=== PATIENT | female | born 1955 | race Caucasian/White ===

== ENCOUNTER 2018-10-27 20:16 | Emergency (ER) | payer OTHER, MEDICAID, SELFPAY ==
[2018-10-27 20:22] VITALS: BP 201/116; PULSE 78; RESP 20; O2SAT 100
--- NOTE | 2018-10-27 21:27 | ED_ITS ---
HPI - Eye Problem <Jacey Olson PA-C - Last Filed: 10/27/18 22:47> General Chief complaint: Eye Problems Stated complaint: thinks she has pink eye of left eye Time Seen by Provider: 10/27/18 21:25 Source: patient Mode of arrival: ambulatory Limitations: no limitations History of Present Illness HPI Narrative: This 63-year-old female comes to ED tonight due to concern for pink eye. She states that she developed a red, gritty irritated eye today. She has had pinkeye before and this feels the same, and she states that she has been around a friend for the last couple of days who developed pink eye just before hers started. She states that her vision is normal. She has had some discolored drainage and mattering. She states that she has had a bit of a runny nose lately, but otherwise no illness, no other upper respiratory symptoms , no fever. Of note her blood pressure is elevated today and she admits that she has been off of her lisinopril and hydrochlorothiazide for about 2 months just due to not getting a refill of it. She has not had any chest pain or other acute symptoms since off of this Related Data Previous Rx's Medication Instructions Recorded hydrochlorothiazide 25 mg PO QDAY #30 tab 03/21/17 nitrofurantoin monohyd/m-cryst 100 mg PO BID #14 cap 10/03/17 phenazopyridine 100 mg PO TID #6 tab 10/03/17 lisinopril 10 mg PO QDAY #30 tab 11/27/17 atorvastatin [Lipitor] 20 mg PO HS #30 tab 11/30/17 pneumococcal 23 polyvalent vaccine 0.5 ml IM ONCE #0.5 ml 04/03/18 25 mcg/0.5 mL injection syringe erythromycin 0.5 inch EYE-LEFT .q4WA 7 Days 10/27/18 #3.5 gram hydrochlorothiazide 25 mg PO DAILY #30 tab 10/27/18 lisinopril 10 mg PO DAILY #30 tab 10/27/18 Allergies Allergy/AdvReac Type Severity Reaction Status Date / Time propoxyphene [From DARVON] Allergy Severe REDNESS Unverified 10/27/18 20:26 AND SWELLING IN FACE CORTISONE SHOTS Allergy Severe HIVES Uncoded 10/27/18 20:26 FROM HEAD TO TOES Review of Systems <Jacey Olson PA-C - Last Filed: 10/27/18 22:47> Review of Systems ROS Unobtainable: All systems reviewed & are unremarkable except as noted in HPI and below Exam <Jacey Olson PA-C - Last Filed: 10/27/18 22:47> Narrative Exam Narrative: GENERAL APPEARANCE: Patient sitting comfortably, in no distress. HEENT: PERRL, EOMI, left eye erythematous conjunctiva and scleral injection. She has some watery opaque drainage. Right eye is normal. Vision: OS 20/40, OU 20/25, OD 20/30 LUNGS: Clear to auscultation bilaterally. HEART: Rate and rhythm regular without murmur, normal S1 and S2, no S3 or S4. Initial Vital Signs Initial Vital Signs: Vital Signs Pulse Rate 78 10/27/18 20:22 Respiratory Rate 20 10/27/18 20:22 Blood Pressure 201/116 H 10/27/18 20:22 Pulse Oximetry 100 10/27/18 20:22 <Zan Monson MD - Last Filed: 10/28/18 05:37> Initial Vital Signs Initial Vital Signs: Vital Signs Pulse Rate 78 10/27/18 20:22 Respiratory Rate 20 10/27/18 20:22 Blood Pressure 201/116 H 10/27/18 20:22 Pulse Oximetry 100 10/27/18 20:22 Course <Jacey Olson PA-C - Last Filed: 10/27/18 22:47> Orders Ordered: Discontinued Medications Erythromycin (Erythromycin Ophth Oint) 1 applic EYE-LEFT NOW ONE Stop: 10/27/18 21:34 Last Admin: 10/27/18 22:02 Dose: 1 applic Hydrochlorothiazide (Hydrochlorothiazide) 25 mg PO NOW ONE Stop: 10/27/18 21:34 Last Admin: 10/27/18 22:02 Dose: 25 mg Lisinopril (Zestril) 10 mg PO NOW ONE Stop: 10/27/18 21:34 Last Admin: 10/27/18 22:02 Dose: 10 mg Vital Signs - 8 hr 10/27/18 22:25 Pulse Rate 70 Blood Pressure 175/109 H <Zan Monson MD - Last Filed: 10/28/18 05:37> Orders Ordered: Discontinued Medications Erythromycin (Erythromycin Ophth Oint) 1 applic EYE-LEFT NOW ONE Stop: 10/27/18 21:34 Last Admin: 10/27/18 22:02 Dose: 1 applic Hydrochlorothiazide (Hydrochlorothiazide) 25 mg PO NOW ONE Stop: 10/27/18 21:34 Last Admin: 10/27/18 22:02 Dose: 25 mg Lisinopril (Zestril) 10 mg PO NOW ONE Stop: 10/27/18 21:34 Last Admin: 10/27/18 22:02 Dose: 10 mg Vital Signs - 8 hr 10/27/18 22:25 Pulse Rate 70 Blood Pressure 175/109 H Discharge Plan Departure Patient Disposition: Home Clinical Impression: Conjunctivitis, Hypertension Discharge Date/Time: 10/27/18 22:33 Interventions: ED Discharge Assessment Last Done: 10/27/18 22:25 Instructions: DI for High Blood Pressure, DI for Conjunctivitis Activity Restrictions/Additional Instructions: We have given you some ointment to start tonight for pinkeye. Please apply this every few hours while you are awake for the 1st day or 2, then you can change to every 6 hr. As we talked about, you should return if you have any acutely worsening symptoms such as acute vision change or severe eye pain. You should follow up with your eye doctor if this is not improving in a few days. We have given you a dose of your previous blood pressure medications this evening (I have given you the doses that were last on file in your records since you were not sure about them), and I have sent in some to your pharmacy for you to sisal picker tomorrow with the pink eye medicine. Please remember how important it is for you to take these medicines to prevent strokes and heart attacks, especially since you already have a history of carotid artery disease. Please call your PCP office on Monday and make sure you set up a follow-up visit in the next week or so with you back on your blood pressure medicine to make sure this is improving. You may need lab work checked as well. Prescriptions: New erythromycin 5 mg/gram (0.5 %) ointment 0.5 inch EYE-LEFT .q4WA 7 Days Qty: 3.5 RF: 0 lisinopril 10 mg tablet 10 mg PO DAILY Qty: 30 RF: 0 hydrochlorothiazide 25 mg tablet 25 mg PO DAILY Qty: 30 RF: 0 No Action hydrochlorothiazide 25 MG tablet 25 mg PO QDAY Qty: 30 RF: 6 phenazopyridine 100 MG tablet 100 mg PO TID Qty: 6 RF: 1 nitrofurantoin monohyd/m-cryst 100 MG capsule 100 mg PO BID Qty: 14 RF: 0 lisinopril 10 MG tablet 10 mg PO QDAY Qty: 30 RF: 6 atorvastatin [Lipitor] 20 MG tablet 20 mg PO HS Qty: 30 RF: 6 pneumococcal 23-peggy ps vaccine 25 mcg/0.5 mL syringe 0.5 ml IM ONCE Qty: 0.5 RF: 0 Referrals: Camilla Alcantara PA-C [Primary Care Provider] - <Zan Monson MD - Last Filed: 10/28/18 05:37> Cosign ED Attending Cosignature Attestation: I was present in the ER at the time of this patient's care. I reviewed the medical workup. I was available for verbal or direct assessment if needed. I agree with the assessment and evaluation.
[2018-10-27] MEDS: hydroCHLOROthiazide 25 MG TABLET PO (22:02)
[2018-10-27] MEDS: LISINOPRIL 10 MG TABLET PO (22:02)
[2018-10-27] MEDS: ERYTHROMYCIN OPHTH 1 GM OINT 1 APPLIC EYE-LEFT (22:02)
[2018-10-27 22:25] VITALS: BP 175/109; PULSE 70
== END 2018-10-27 22:33 | disposition home or self-care (01) ==
PROVIDERS: Emergency Provider Internal Medicine; Family Provider Physician Assistant; PCP Physician Assistant
DX: H10.9 Unspecified conjunctivitis (principal); I10 Essential (primary) hypertension
CPT/HCPCS: 99283

== ENCOUNTER → 2019-03-01 09:03 | Outpatient (CLI) | payer OTHER, MEDICAID, SELFPAY ==
[2019-03-01 10:19] LABS: Alanine Aminotransferase 14 IU/L (9-52); Albumin 4.2 g/dL (3.5-5.0); Albumin Globulin Ratio 1.5 (1.0-2.8); Alkaline Phosphatase 84 U/L (38-126); Aspartate Aminotransferase 19 IU/L (14-36); BUN Creatinine Ratio 18.9 (6-22); Bilirubin Total 0.5 mg/dL (0.2-1.3); Blood Urea Nitrogen 17 mg/dL (7-17); Calcium 9.6 mg/dL (8.4-10.2); Carbon Dioxide 29 mmol/L (22-32); Chloride 107 mmol/L (98-107); Cholesterol 159 mg/dL (140-199); Estimated Glomerular Filt Rate > 60.0 mL/min (>60); Globulin 2.8 g/dL (1.7-4.1); Glucose 84 mg/dL (80-110); HDL Cholesterol 58 mg/dL (40-60); HEMOLYSIS < 15 (0-50); LDL Cholesterol Calculated 91 mg/dL (<100); Potassium 3.7 mmol/L (3.4-5.1); Sodium 143 mmol/L (137-145); Triglycerides 49 mg/dL (35-150)
== END ==
PROVIDERS: PCP Physician Assistant; Visit Provider Physician Assistant
DX: E78.5 Hyperlipidemia, unspecified (principal); I10 Essential (primary) hypertension
CPT/HCPCS: 36415; 80053; 80061

== ENCOUNTER → 2019-03-21 08:04 | Outpatient (CLI) | payer OTHER, MEDICAID, SELFPAY ==
--- NOTE | 2019-03-21 08:06 | DI.MG.S_ITS ---
BILATERAL DIGITAL SCREENING MAMMOGRAM 3D/2D WITH CAD: 03/21/2019 CLINICAL: Routine screening. Comparison is made to exam dated: 08/18/2017 [facility]. The tissue of both breasts is predominantly fatty. Current study was also evaluated with a Computer Aided Detection (CAD) system. No significant masses, calcifications, or other findings are seen in either breast. There has been no significant interval change. IMPRESSION: NEGATIVE There is no mammographic evidence of malignancy. A 1 year screening mammogram is recommended. This exam was interpreted at Station ID: [id number]. NOTE: For mammograms, a report in lay terms will be sent to the patient. Approximately 15% of breast malignancies will not be visualized mammographically. In the management of a palpable breast mass, a negative mammogram must not discourage biopsy of a clinically suspicious lesion. Electronically Signed By: Rosa Isela shannon/matilde:03/21/2019 10:10:50 letter sent: Normal Exam ACR BI-RADS Category 1: Negative 3341F
--- NOTE | 2019-03-21 08:06 | DI.US.S_ITS ---
PROCEDURE: US CAROTID DOPPLER BI INDICATIONS: LEFT CAROTID ENDARTERECTOMY 2016/ HYPERTENSION TECHNIQUE: Color and pulse Doppler interrogation was performed of both carotid systems, with image documentation and velocity measurements. COMPARISON: [facility], , CAROTID ARTERY DOPPLER BILAT, 11/02/2015, 10:53. FINDINGS: Stenosis calculations are based on SRU (Society of Radiologists in Ultrasound) criteria. Right side: Brachial blood pressure: 115/80 mm Hg. Common carotid artery peak systolic velocity: 78 cm/sec. Internal carotid artery peak systolic velocity: 80 cm/sec. Internal carotid artery end diastolic velocity: 36 cm/sec. External carotid artery peak systolic velocity: 88 cm/sec. ICA/CCA peak systolic ratio: 1.02. Mcfadden scale imaging description: Mild plaque at the bifurcation Percent internal carotid artery stenosis: Less than 50%. Vertebral artery: Flow direction is antegrade. Left side: Brachial blood pressure: 107/76 mm Hg. Common carotid artery peak systolic velocity: 83 cm/sec. Internal carotid artery peak systolic velocity: 103 cm/sec. Internal carotid artery end diastolic velocity: 35 cm/sec. External carotid artery peak systolic velocity: 130 cm/sec. ICA/CCA peak systolic ratio: 1.24. Mcfadden scale imaging description: There is mild dilation of the proximal ICA at the bifurcation appearing slightly more prominent compared to prior exam. Percent internal carotid artery stenosis: Less than 50%. Vertebral artery: Flow direction is antegrade. IMPRESSION: 1. Less than 50% stenosis of the internal carotid arteries bilaterally, with mild degree of interval progression noted on the left. 2. Mild interval dilation prominence of the proximal internal carotid artery compared to prior exam. As clinically indicated, further evaluation with CTA neck may be obtained. Dictated by: Karine Flores M.D. on 03/21/2019 at 11:41 Approved by: Karine Flores M.D. on 03/21/2019 at 11:47
== END ==
PROVIDERS: PCP Physician Assistant; Visit Provider Physician Assistant
DX: Z12.31 Encounter for screening mammogram for malignant neoplasm of breast (principal); I65.23 Occlusion and stenosis of bilateral carotid arteries; I10 Essential (primary) hypertension; Z98.890 Other specified postprocedural states
CPT/HCPCS: 77063; 77067; 93880

== ENCOUNTER → 2020-05-19 09:22 | Outpatient (CLI) | payer MEDICARE, MEDICAID, SELFPAY ==
[2020-05-19 11:25] LABS: Add Manual Diff / Slide Review NO; Basophils Absolute Auto 0 /uL (0-100); Basophils Percent Auto 0.4 % (0-2); Eosinophils Absolute Auto 200 /uL (0-450); Eosinophils Percent Auto 3.7 % (2-4); Hematocrit 41.4 % (36-46); Hemoglobin 13.9 g/dL (12.0-16.0); Lymphocytes Absolute Auto 2600 /uL (1100-4500); Lymphocytes Percent Auto 38.4 % (25-40); Mean Corpuscular HGB Conc 33.5 % (30-36); Mean Corpuscular Hemoglobin 30.2 PG (26-34); Mean Corpuscular Volume 90.4 fL (80-100); Monocytes Absolute Auto 500 /uL (0-900); Monocytes Percent Auto 7.3 % (3-14); Neutrophils Absolute Auto 3400 /uL (1500-7000); Neutrophils Percent Auto 50.2 % (50-75); Platelet Count 199 X10^3/uL (150-400); Red Blood Cell Count 4.59 X10^6/uL (4.0-5.2); Red Cell Distribution Width 14.6 % (11.6-14.8); White Blood Cell Count 6.7 X10^3/uL (4.5-11.0)
[2020-05-19 12:00] LABS: Alanine Aminotransferase 17 IU/L (<35); Albumin 4.3 g/dL (3.5-5.0); Albumin Globulin Ratio 1.7 (1.0-2.8); Alkaline Phosphatase 74 U/L (38-126); Aspartate Aminotransferase 27 IU/L (14-36); BUN Creatinine Ratio 29.1 (6-22); Bilirubin Total 0.7 mg/dL (0.2-1.3); Blood Urea Nitrogen 25 mg/dL (7-17); Calcium 9.8 mg/dL (8.4-10.2); Carbon Dioxide 27 mmol/L (22-32); Chloride 104 mmol/L (98-107); Cholesterol 172 mg/dL (140-199); Estimated Glomerular Filt Rate > 60.0 mL/min (>60); Globulin 2.6 g/dL (1.7-4.1); Glucose 77 mg/dL (80-110); HDL Cholesterol 61 mg/dL (40-60); HEMOLYSIS < 15 (0-50); LDL Cholesterol Calculated 94 mg/dL (<100); Potassium 4.8 mmol/L (3.4-5.1); Sodium 137 mmol/L (137-145); Total Protein 6.9 g/dL (6.3-8.2); Triglycerides 86 mg/dL (35-150)
[2020-05-19 12:30] LABS: TSH w/ Reflex to FT4 1.49 uIU/mL (0.47-4.68)
== END ==
PROVIDERS: PCP Registered Nurse Diabetes Educator; Referring Provider Registered Nurse Diabetes Educator; Visit Provider Registered Nurse Diabetes Educator
DX: E78.5 Hyperlipidemia, unspecified (principal); I10 Essential (primary) hypertension
CPT/HCPCS: 36415; 80053; 80061; 84443; 85025

== ENCOUNTER → 2020-06-04 13:25 | Outpatient (CLI) | payer MEDICARE, MEDICAID, SELFPAY ==
--- NOTE | 2020-06-04 13:36 | DI.MG.S_ITS ---
Patient Name: RICHARD ROBERTS date: 1955 Sex: F Attending Physician: Rio Indications: Date: 06/04/2020 13:30 At the request of: LYNN QUIROGA Procedure: MM screening mammo BI BILATERAL DIGITAL SCREENING MAMMOGRAM 3D/2D WITH CAD: 06/04/2020 CLINICAL: Routine screening. Comparison is made to exams dated: 03/21/2019 mammogram, 08/18/2017 mammogram, and 09/05/2017 mammogram - [facility]. The tissue of both breasts is predominantly fatty. Current study was also evaluated with a Computer Aided Detection (CAD) system. No significant masses, calcifications, or other findings are seen in either breast. There has been no significant interval change. IMPRESSION: NEGATIVE There is no mammographic evidence of malignancy. A 1 year screening mammogram is recommended. This exam was interpreted at Station ID: [id number]. NOTE: For mammograms, a report in lay terms will be sent to the patient. Approximately 15% of breast malignancies will not be visualized mammographically. In the management of a palpable breast mass, a negative mammogram must not discourage biopsy of a clinically suspicious lesion. Electronically Signed By: Alok [email or web address]/matilde:06/04/2020 14:13:16 letter sent: Normal Exam ACR BI-RADS Category 1: Negative 3341F
== END ==
PROVIDERS: PCP Registered Nurse Diabetes Educator; Referring Provider Registered Nurse Diabetes Educator; Visit Provider Registered Nurse Diabetes Educator
DX: Z12.31 Encounter for screening mammogram for malignant neoplasm of breast (principal)
CPT/HCPCS: 77063; 77067

== ENCOUNTER → 2020-12-16 11:12 | Outpatient (CLI) | payer MEDICARE, SELFPAY ==
[2020-12-16] MEDS: COVID-19 VACC #1, MRNA(MOD) 100 MCG/0.5 ML VIAL IM (11:23)
== END ==
PROVIDERS: PCP Registered Nurse Diabetes Educator; Visit Provider Internal Medicine
DX: Z23 Encounter for immunization (principal)
CPT/HCPCS: 0011A; 91301

== ENCOUNTER → 2021-01-13 11:10 | Outpatient (CLI) | payer MEDICARE, SELFPAY ==
[2021-01-13] MEDS: COVID-19 VACC #2, MRNA(MOD) 100 MCG/0.5 ML VIAL IM (11:18)
== END ==
PROVIDERS: PCP Registered Nurse Diabetes Educator; Visit Provider Internal Medicine
DX: Z23 Encounter for immunization (principal)
CPT/HCPCS: 0012A; 91301

== ENCOUNTER → 2021-07-20 13:34 | Outpatient (CLI) | payer MEDICARE, MEDICAID, SELFPAY ==
--- NOTE | 2021-07-20 | DI.RAD.S_ITS ---
PROCEDURE: XR HIP W PEL IF DONE RT 2V INDICATIONS: Pain in right hip TECHNIQUE: AP pelvis with lateral view(s) of the right hip(s). COMPARISON: [facility], CR, [id number] W PEL IF PERFORMED, 12/10/2015, 12:56. FINDINGS: Bones: Left hip arthroplasty components are intact and stable in position. 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 There are no fractures. There is chronic sclerosis at the pubic symphysis, increased compared to the prior study. Incidental note is made of prominent facet joint arthropathy in the visible lower lumbar spine. Sacroiliac joints are intact. Soft tissues: The visualized bowel gas pattern is normal. No suspicious soft tissue calcifications. IMPRESSION: 1. 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 The severity is not significantly changed since 2016. 2. Increased sclerosis at the pubic symphysis. 3. Left hip arthroplasty is in place. Dictated by: Jazz Martin M.D. on 07/20/2021 at 16:30 Approved by: Jazz Martin M.D. on 07/20/2021 at 16:33
== END ==
PROVIDERS: PCP Student in an Organized Health Care Education/Training Program; Referring Provider Student in an Organized Health Care Education/Training Program; Visit Provider Student in an Organized Health Care Education/Training Program
DX: M25.551 Pain in right hip (principal); M24.7 Protrusio acetabuli; Z96.642 Presence of left artificial hip joint
CPT/HCPCS: 73502

== ENCOUNTER → 2021-08-13 08:41 | Outpatient (CLI) | payer MEDICARE, MEDICAID, SELFPAY ==
[2021-08-13 09:50] LABS: Add Manual Diff / Slide Review NO; Basophils Absolute Auto 100 /uL (0-100); Basophils Percent Auto 0.6 % (0-2); Eosinophils Absolute Auto 200 /uL (0-450); Eosinophils Percent Auto 2.1 % (2-4); Hematocrit 39.5 % (36-46); Hemoglobin 13.1 g/dL (12.0-16.0); Lymphocytes Absolute Auto 2500 /uL (1100-4500); Lymphocytes Percent Auto 31.3 % (25-40); Mean Corpuscular HGB Conc 33.3 % (30-36); Mean Corpuscular Hemoglobin 30.1 PG (26-34); Mean Corpuscular Volume 90.4 fL (80-100); Monocytes Absolute Auto 600 /uL (0-900); Monocytes Percent Auto 6.9 % (3-14); Neutrophils Absolute Auto 4700 /uL (1500-7000); Neutrophils Percent Auto 59.1 % (50-75); Platelet Count 223 X10^3/uL (150-400); Red Blood Cell Count 4.37 X10^6/uL (4.0-5.2); Red Cell Distribution Width 15.1 % (11.6-14.8)
[2021-08-13 10:10] LABS: Alanine Aminotransferase 17 IU/L (<35); Albumin 4.1 g/dL (3.5-5.0); Albumin Globulin Ratio 1.6 (1.0-2.8); Alkaline Phosphatase 72 U/L (38-126); Aspartate Aminotransferase 28 IU/L (14-36); BUN Creatinine Ratio 23.8 (6-22); Bilirubin Total 0.6 mg/dL (0.2-1.3); Blood Urea Nitrogen 20 mg/dL (7-17); Calcium 9.5 mg/dL (8.4-10.2); Carbon Dioxide 25 mmol/L (22-32); Chloride 105 mmol/L (98-107); Cholesterol 227 mg/dL (140-199); Estimated Glomerular Filt Rate > 60.0 mL/min (>60); Globulin 2.6 g/dL (1.7-4.1); Glucose 81 mg/dL (80-110); HDL Cholesterol 61 mg/dL (40-60); HEMOLYSIS < 15 (0-50); LDL Cholesterol Calculated 142 mg/dL (<100); Potassium 4.6 mmol/L (3.4-5.1); Sodium 139 mmol/L (137-145); Total Protein 6.7 g/dL (6.3-8.2); Triglycerides 119 mg/dL (35-150)
== END ==
PROVIDERS: PCP Student in an Organized Health Care Education/Training Program; Referring Provider Student in an Organized Health Care Education/Training Program; Visit Provider Student in an Organized Health Care Education/Training Program
DX: I10 Essential (primary) hypertension (principal); Z00.00 Encounter for general adult medical examination without abnormal findings; E78.5 Hyperlipidemia, unspecified
CPT/HCPCS: 36415; 80053; 80061; 84443; 85025

== ENCOUNTER → 2021-08-20 14:03 | Outpatient (CLI) | payer MEDICARE, MEDICAID, SELFPAY ==
--- NOTE | 2021-08-20 | DI.MG.S_ITS ---
BILATERAL DIGITAL SCREENING MAMMOGRAM 3D/2D WITH CAD: 08/20/2021 CLINICAL: Routine screening. Comparison is made to exams dated: 03/21/2019 mammogram, 08/18/2017 mammogram, and 06/04/2020 mammogram - [facility]. The tissue of both breasts is predominantly fatty. Current study was also evaluated with a Computer Aided Detection (CAD) system. No significant masses, calcifications, or other findings are seen in either breast. There has been no significant interval change. IMPRESSION: NEGATIVE There is no mammographic evidence of malignancy. A 1 year screening mammogram is recommended. This exam was interpreted at Station ID: [id number]. NOTE: For mammograms, a report in lay terms will be sent to the patient. Approximately 15% of breast malignancies will not be visualized mammographically. In the management of a palpable breast mass, a negative mammogram must not discourage biopsy of a clinically suspicious lesion. Electronically Signed By: Alok [email or web address]/matilde:08/20/2021 15:34:36 letter sent: Normal Exam ACR BI-RADS Category 1: Negative [id number]
== END ==
PROVIDERS: PCP Student in an Organized Health Care Education/Training Program; Referring Provider Student in an Organized Health Care Education/Training Program; Visit Provider Student in an Organized Health Care Education/Training Program
DX: Z12.31 Encounter for screening mammogram for malignant neoplasm of breast (principal)
CPT/HCPCS: 77063; 77067

== ENCOUNTER → 2022-07-28 12:45 | Outpatient (CLI) | payer OTHER, MEDICAID, SELFPAY ==
--- NOTE | 2022-07-28 13:31 | DI.RAD.S_ITS ---
PROCEDURE: XR SHOULDER RT MIN 2V INDICATIONS: SHOULDER PAIN TECHNIQUE: 3 views of the shoulder were acquired. COMPARISON: None. FINDINGS: Bones: No fractures or dislocations. Moderate acromioclavicular joint and glenohumeral joint osteoarthritic changes are seen with joint space narrowing, subchondral sclerosis and small marginal osteophyte formations. No suspicious bony lesions. Visualized ribs appear intact. Soft tissues: No suspicious soft tissue calcifications. IMPRESSION: Moderate acromioclavicular joint and glenohumeral joint osteoarthritis. No shoulder fracture or dislocation. No gross soft tissue abnormalities. Dictated by: Reagan Cardoso M.D. on 07/28/2022 at 14:31 Approved by: Reagan Cardoso M.D. on 07/28/2022 at 14:32
== END ==
PROVIDERS: PCP Student in an Organized Health Care Education/Training Program; Referring Provider Physician Assistant; Visit Provider Physician Assistant
DX: M25.511 Pain in right shoulder (principal); M19.011 Primary osteoarthritis, right shoulder; Z13.820 Encounter for screening for osteoporosis; M85.851 Other specified disorders of bone density and structure, right thigh; Z78.0 Asymptomatic menopausal state
CPT/HCPCS: 73030; 77080

== ENCOUNTER → 2022-09-02 08:19 | Outpatient (CLI) | payer OTHER, MEDICAID, SELFPAY ==
--- NOTE | 2022-09-02 | DI.US.S_ITS ---
PROCEDURE: US CAROTID DOPPLER BI INDICATIONS: Dizziness and giddiness TECHNIQUE: Color and pulse Doppler interrogation was performed of both carotid systems, with image documentation and velocity measurements. COMPARISON: [facility], [place], US CAROTID DOPPLER BI, 03/21/2019, 8:32. FINDINGS: Stenosis calculations are based on SRU (Society of Radiologists in Ultrasound) criteria. Right side: Brachial blood pressure: 123/80 mm Hg. Common carotid artery peak systolic velocity: 81 cm/sec. Internal carotid artery peak systolic velocity: 69 cm/sec. Internal carotid artery end diastolic velocity: 30 cm/sec. External carotid artery peak systolic velocity: 78 cm/sec. ICA/CCA peak systolic ratio: 0.9 . Mcfadden scale imaging description: Mild atherosclerotic plaque. Percent internal carotid artery stenosis: Less than 50%. Vertebral artery: Flow direction is antegrade. Left side: Brachial blood pressure: 114/79 mm Hg. Common carotid artery peak systolic velocity: 79 cm/sec. Internal carotid artery peak systolic velocity: 77 cm/sec. Internal carotid artery end diastolic velocity: 14 cm/sec. External carotid artery peak systolic velocity: 120 cm/sec. ICA/CCA peak systolic ratio: 1.2 . Mcfadden scale imaging description: Mild atherosclerotic plaque. Percent internal carotid artery stenosis: Less than 50% Vertebral artery: Flow direction is antegrade. IMPRESSION: Less than 50% stenosis of the internal carotid arteries bilaterally. Approved by: Alok Hagen M.D. on 09/02/2022 at 12:46
== END ==
LOC: US 08:20
PROVIDERS: PCP Physician Assistant; Referring Provider Physician Assistant; Visit Provider Physician Assistant
DX: I65.23 Occlusion and stenosis of bilateral carotid arteries (principal); R42 Dizziness and giddiness
CPT/HCPCS: 93880

== ENCOUNTER → 2023-06-27 08:43 | Outpatient (CLI) | payer OTHER, MEDICAID, SELFPAY ==
--- NOTE | 2023-06-27 | DI.US.S_ITS ---
PROCEDURE: US CAROTID DOPPLER BI INDICATIONS: HISTORY OF CAROTID ENDARTERECTOMY TECHNIQUE: Color and pulse Doppler interrogation was performed of both carotid systems, with image documentation and velocity measurements. COMPARISON: [facility], , CAROTID DOPPLER BI, 09/02/2022, 8:48. FINDINGS: Stenosis calculations are based on SRU (Society of Radiologists in Ultrasound) criteria. The flow velocities and the arterial waveforms are normal within both carotid arterial systems. Mild atherosclerotic plaque is seen on both sides. The estimated degree of internal carotid artery stenosis is less than 50%. Antegrade flow is confirmed within both vertebral arteries. IMPRESSION: No hemodynamically significant stenosis is seen. Similar to prior. Dictated by: Artie Garcia M.D. on 06/27/2023 at 10:43 Approved by: Artie Garcia M.D. on 06/27/2023 at 10:43
== END ==
PROVIDERS: PCP Physician Assistant; Referring Provider Physician Assistant; Visit Provider Physician Assistant
DX: Z09 Encounter for follow-up examination after completed treatment for conditions other than malignant neoplasm (principal); Z98.890 Other specified postprocedural states
CPT/HCPCS: 93880

== ENCOUNTER → 2023-10-20 11:35 | Outpatient (CLI) | payer OTHER, MEDICAID, SELFPAY ==
[2023-10-20 12:56] LABS: Add Manual Diff / Slide Review NO; Basophils Absolute Auto 0 /uL (0-100); Basophils Percent Auto 0.5 % (0-2); Eosinophils Absolute Auto 200 /uL (0-450); Eosinophils Percent Auto 2.4 % (2-4); Hematocrit 40.1 % (36-46); Hemoglobin 13.4 g/dL (12.0-16.0); Lymphocytes Absolute Auto 2200 /uL (1100-4500); Lymphocytes Percent Auto 31.8 % (25-40); Mean Corpuscular HGB Conc 33.5 % (30-36); Mean Corpuscular Hemoglobin 29.1 PG (26-34); Mean Corpuscular Volume 86.9 fL (80-100); Monocytes Absolute Auto 500 /uL (0-900); Monocytes Percent Auto 7.8 % (3-14); Neutrophils Absolute Auto 4000 /uL (1500-7000); Neutrophils Percent Auto 57.5 % (50-75); Platelet Count 247 X10^3/uL (150-400); Red Blood Cell Count 4.61 X10^6/uL (4.0-5.2); Red Cell Distribution Width 14.1 % (11.6-14.8)
[2023-10-20 13:14] LABS: INR 1.1 (0.9-1.3); Prothrombin Time 12.2 SECONDS (9.4-12.5)
[2023-10-20 13:16] LABS: PTT Partial Thromboplastin Tim 33 SECONDS (25.1-36.5)
[2023-10-20 13:39] LABS: BUN Creatinine Ratio 28.3 (6-22); Blood Urea Nitrogen 28 mg/dL (7-17); Calcium 9.6 mg/dL (8.4-10.2); Carbon Dioxide 28 mmol/L (22-32); Chloride 100 mmol/L (98-107); Estimated Glomerular Filt Rate > 60 mL/min (>60); Glucose 92 mg/dL (80-110); HEMOLYSIS < 15 (0-50); Potassium 4.2 mmol/L (3.4-5.1); Sodium 137 mmol/L (137-145)
== END ==
LOC: LAB 11:36
PROVIDERS: PCP Physician Assistant; Referring Provider Orthopaedic Surgery; Visit Provider Orthopaedic Surgery
DX: Z51.81 Encounter for therapeutic drug level monitoring (principal); Z01.812 Encounter for preprocedural laboratory examination; N39.0 Urinary tract infection, site not specified
CPT/HCPCS: 36415; 80048; 85025; 85610; 85730

== ENCOUNTER 2023-11-14 08:22 | Day surgery (SDC) | payer OTHER, MEDICAID, SELFPAY ==
[2023-11-02 12:50] VITALS: BMI 27.6
[2023-11-14] VITALS (17 sets, daily range): BP systolic 119–184; BP diastolic 75–104; PULSE 43–80; RESP 11–25; TEMP 36.1–36.4; O2SAT 92–100; BMI 27.6
--- NOTE | 2023-11-14 06:00 | DI.RAD.S_ITS ---
PROCEDURE: XR HIP W PEL IF DONE RT 2V INDICATIONS: INNER OP TECHNIQUE: 3 spot fluoroscopic intraoperative images of the right hip. COMPARISON: [facility], CR, XR HIP W PEL IF DONE RT 2V, 07/20/2021, 13:36. FINDINGS: Spot fluoroscopic intraoperative images demonstrate postsurgical changes from a right total hip arthroplasty with hardware components in stable positions. Postsurgical changes are seen in the overlying soft tissues. IMPRESSION: Expected intraoperative appearance of a right total hip arthroplasty. Approved by: Alok Hagen M.D. on 11/14/2023 at 15:33
[2023-11-14] MEDS: ACETAMINOPHEN 325 MG TABLET 975 MG PO (09:13)
[2023-11-14] MEDS: CELECOXIB 200 MG CAPSULE PO (09:14)
[2023-11-14] MEDS: LACTATED RINGERS 1,000 ML 42 ML IV ×2 (09:14→13:15)
[2023-11-14] MEDS: VANCOMYCIN 1,000 MG/200 ML PIGGYBACK 200 MG IV (10:30)
--- NOTE | 2023-11-14 11:11 | PM.PREOP ---
Pre-operative Note Interval Note History & Physical reviewed/Exam performed by Physician: Yes Changes to H&P: No
--- NOTE | 2023-11-14 11:11 | PM.OP.1 ---
Operative Date/Time/Diagnoses Date of procedure: 11/14/23 Time of procedure: 11:55 Pre-op diagnosis: Right hip OA Post-op diagnosis: same Procedure & Clinicians Procedure: Right total hip arthroplasty anterior approach Same procedure as scheduled: Yes Indications: The patient has had progressively worsening right hip pain with radiographic changes consistent with arthritis. Non-operative management has failed and the patient has requested total hip replacement. The risks, benefits and alternatives to surgery were discussed with the patient prior to proceeding. Risks discussed included, but were not limited to, failure to relieve pain, leg length discrepancy, dislocation, stiffness, infection, nerve damage, deep venous thrombosis, pulmonary embolism, stroke, coma, heart attack, permanent paralysis and , as well as the potential need for eventual revision of the prosthetic. Surgeon: Xochilt Coreas Human Resources Partner: Harley Barrett Anesthesia Type: Spinal Operative Notes Findings: Severe right hip osteoarthritis, adequate stability, soft bone Closure Type: primary Specimen(s): none sent Prosthetic devices, grafts, tissues, transplants, or devices: Coreas and nephew R3 size 52 cup, neutral poly liner, one 6.5 mm screw, size 1 standard offset polar stem with collar, 36 x -3 cobalt chrome head Estimated Blood Loss (mL): 250 Blood products transfused: none Procedure in detail: The patient was brought to the operating room. Patient was carefully positioned in the supine position. Time-out was performed and antibiotics were given. Anesthesia was induced. She was positioned in the on the table in order to allow hyperextension of the hip. The right lower extremity was prepped and draped in a standard sterile fashion. An anterior right hip incision was made 1 fingerbreadth lateral to the anterior superior iliac spine and extended distally towards the greater trochanter. Dissection was carried out through skin and subcutaneous tissues. Superficial hemostasis was achieved. The fascia over the tensor fascia golden was defined and incised with a knife. Two Allis clamps were used to grasp the fascia. Tensor fascia golden was retracted laterally. A gelpi retractor was placed. Dissection was carried out down along the neck. The circumflex vessels were carefully identified and cauterized with the Aqua Mantis. PA was used during the procedure and was essential for intraoperative retraction and safe implantation of the components. There was good visualization of the femoral neck. A Cobra was placed superior to the neck and the gluteus fibers were carefully stripped from that superior aspect of the capsule. A 2nd retractor was placed along the inferior aspect of the neck. The rectus insertion along the capsule was partially released. A 3rd retractor that was then gently placed over the rim of the acetabulum under the rectus. Capsule was carefully incised and released from the intertrochanteric line circumferentially superior to the mid sagittal line and inferiorly to the mid sagittal line until the lesser trochanter was palpable. A tag stitch was placed both in the superior and inferior limb of the capsular insertion. Along the acetabulum capsule was also released up to the mid sagittal 12:00 position. A portion of the labrum was resected. A saw was used to perform an osteotomy at the level of the intertrochanteric line and the junction of the superior femoral neck leaving approximately 1 finger breath of residual inferior neck above the lesser trochanter. A 2nd cut was made along the femoral neck at the base of the head and a napkin ring of neck was removed. Corkscrew was placed in the femoral head and the head was removed without difficulty. Retractors were then repositioned around the acetabulum. Residual labrum was resected and additional osteophytes were removed. A reamer that was 4 mm below the templated size was placed by hand in the acetabulum and it was reamed to centralize the acetabulum. It was then reamed up to 2 under the templated size and fluoroscopy was brought in to confirm the position of the reaming and depth of reaming. I reamed 1 under the anticipated size. A trial cup was placed and noted that it was appropriately sized and fluoroscopy confirmed position and depth. The component was open and inserted without difficulty fluoroscopic imaging was used to confirm that the cup had been adequately seated and was well positioned. It was further stabilized with a single screw. Neutral poly liner was placed. The cup was tested and noted to be stable. Attention was then directed to the femur. The femur was gently hyperextended additional capsular release was performed as needed in order to allow adequate visualization of the proximal femur with elevation of the femur. Patient was placed in a hyperextended slightly adducted position with maximum external rotation. Box osteotome was used to check for any residual neck as well as sclerotic bone along the trochanter. [place] pepper was placed in the femur. Additional broaching was performed. Canal finder was used to determine the alignment of the canal and position. Size 1 broach was placed. The canal was then appropriately broached up to the templated size as long as there was adequate stability of the broach and serial advancement of the broach without excessive impingement. Specific attention was directed at avoiding varus attempting to direct the distal aspect of the broach more anteriorly and avoiding excessive anteversion. Trial reduction showed acceptable range of motion, good stability, no posterior impingement, muslim of leg length and appropriate lateral shuck. I also hyperflexed the hip and checked that there was no impingement anteriorly and there was good stability with flexion, adduction and internal rotation. Marcaine and Exparel were injected.. The stem was placed without difficulty. Repeat trial reduction and x-ray showed acceptable overall position, length, and no evidence of the femoral fracture. Final head was placed. Wound was meticulously irrigated with normal saline. The hip was reduced and additional Exparel and Marcaine were injected. The capsule was closed with interrupted nonabsorbable sutures. The fascia of the tensor was closed with interrupted and running Vicryl. No drain was placed. Any tensor fascia golden muscle that appeared to be contused or injured which was a minimal amount was carefully resected. Capsule around the tensor was injected with Exparel and Marcaine. The skin was closed with barbed stitches for the subcutaneous tissue and skin. We also used surgical glue. The wound was dressed sterilely. Brief Betadine soak was also used and was meticulously irrigated with normal saline. Patient was transferred to recovery room in satisfactory condition. Complications: none Post-operative Condition: stable Disposition: Acute Care Plan for aftercare: The patient will be maintained on a standard total hip replacement protocol with weight bearing as tolerated and anterior hip precautions. The patient will receive Aspirin and sequential compression devices for DVT prophylaxis. The patient will be discharged home when safe for the home environment.
[2023-11-14] MEDS: CEFAZOLIN 2 GM/100 ML PREMIX 100 ML IV ×2 (11:45→20:53)
[2023-11-14] MEDS: TRANEXAMIC ACID 1,000 MG VIAL 1000 MG INJ (12:00)
--- NOTE | 2023-11-14 12:24 | SUR.OPER ---
Patient supine on padded [place]leman table, one arm on padded arm board at <90, other arm padded and secured with tape across patient's chest, both legs secured in padded traction boots and positioned per surgeon, padded post at patient's groin, pressure points checked and padded.
[2023-11-14] MEDS: BUPIVACAINE LIPOSOME 266 MG/20 ML VIAL INJ (12:37)
[2023-11-14] MEDS: BUPIVACAINE 0.25% (PF) 30 ML, EPINEPHrine 0.15 MG INJ (12:39)
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
[2023-11-14] MEDS: HYDROMORPHONE 1 MG INJ IV ×4 (14:44→15:02)
[2023-11-14] MEDS: ONDANSETRON 4 MG/2 ML INJ IV (14:47)
[2023-11-14] MEDS: hydrOXYzine 50 MG/ML INJ 25 MG IM (15:07)
[2023-11-14] MEDS: OXYCODONE/ACETAMINOPHEN 5/325 TABLET 1 TAB PO (15:15)
--- NOTE | 2023-11-14 15:46 | SUR.PHASEI ---
Called in to OR # and spoke to Dr Phillips. BP 184/99 with trends discussed. Pt ok to transfer to floor said . Can restart home meds.
--- NOTE | 2023-11-14 15:47 | SUR.PHASEI ---
1500 Dr Augustin notified of pain pain and anxiety. See order for Vistaril IM.
--- NOTE | 2023-11-14 16:11 | SUR.PHASEI ---
Pt transferred to room 211 in bed by this RN with 1 belongings bag. Family at bedside. SBAR report to Khadra BO. O2 sat on RA on arrival 97%.
[2023-11-14] MEDS: LACTATED RINGERS 1,000 ML 100 ML IV (16:31)
[2023-11-14] MEDS: IBUPROFEN 600 MG TABLET PO ×2 (16:32→22:29)
[2023-11-14] MEDS: lisinopriL 10 MG TABLET PO (16:32)
[2023-11-14] MEDS: hydroCHLOROthiazide 25 MG TABLET 12.5 MG PO (16:32)
[2023-11-14] MEDS: ACETAMINOPHEN 325 MG TABLET 650 MG PO ×2 (16:32→22:30)
--- NOTE | 2023-11-14 17:15 | PC.NURSE ---
1600-Pt to room 211 via bed from PACU. Pt is awake, alert, and oriented x 3. Family members at the bedside. Pt denies pain, nausea, or shortness of breath. ICE pack to right hip. Pt able to wiggle toes and lift left leg-minimal movement on right but has sensation. Describes her right leg as heavy feeling. IVF infusing as ordered. SCD's on and running. Pt oriented to room, call light, bed controls, and tv controls. Bed alarm on for safety and Pt agrees to call for assistance as needed and to not get up without assistance.
--- NOTE | 2023-11-14 17:35 | PT-IP ANOTE ---
PT checked on pt, but pt reports leg is still numb and pt unable to DF LE and does not have full control yet. Check on pt in AM.
[2023-11-14] MEDS: ATORVASTATIN 20 MG TABLET 40 MG PO (20:53)
[2023-11-14] MEDS: DOCUSATE 100 MG CAPSULE PO (20:53)
[2023-11-14] MEDS: ASPIRIN EC 81 MG TABLET PO (20:53)
[2023-11-14] MEDS: OXYCODONE IR 5 MG TABLET PO (20:53)
[2023-11-15 01:19] VITALS: BP 91/64; PULSE 70; RESP 18; TEMP 36.6; O2SAT 92
[2023-11-15] MEDS: OXYCODONE IR 5 MG TABLET PO ×3 (01:56→15:50)
[2023-11-15 05:18] LABS: Hematocrit 34.6 % (36-46); Hemoglobin 11.6 g/dL (12.0-16.0)
[2023-11-15] MEDS: CEFAZOLIN 2 GM/100 ML PREMIX 100 ML IV (05:51)
[2023-11-15] MEDS: ACETAMINOPHEN 325 MG TABLET 650 MG PO ×4 (05:51→22:05)
[2023-11-15] MEDS: IBUPROFEN 600 MG TABLET PO ×4 (05:51→22:06)
[2023-11-15] MEDS: LACTATED RINGERS 1,000 ML 100 ML IV (05:52)
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
[2023-11-15 08:00] VITALS: BP 93/54; PULSE 69; RESP 16; TEMP 36.3; O2SAT 90
--- NOTE | 2023-11-15 09:14 | OT.IP.TRT ---
Current Diagnoses Unilateral primary osteoarthritis, right hip (11/14/23) Surgery Performed Operation Date: 11/14/23 10:45 Actual Procedures p Total Hip Arthroplasty/Anterior Approach(Right) - Xochilt Coreas MD Occupational Therapy Treatment Note M2 OT-IP Current Condition Start: 11/15/23 09:49 Freq: Status: Active Protocol: Document 11/15/23 09:49 [facility] (Rec: 11/15/23 10:04 [facility] [id number]) Occupational Therapy Current Condition Current Condition Evaluation Date 11/15/23 Treatment Diagnosis S/P R NOAH anterior Diagnosis Onset Date 11/14/23 Post Operative Precautions Anterior Hip Precautions No Hip Extension,No Hip External Rotation M3 OT- IP Subjective and Pain Start: 11/15/23 09:49 Freq: Status: Active Protocol: Document 11/15/23 09:49 [facility] (Rec: 11/15/23 10:04 [facility] [id number]) OT- Subjective Occupational Therapy Visit Type Type Initial Evaluation Visit Start Time 08:30 Visit Stop Time 09:14 Occupational Therapy Visit Comments Patient Comments Pt agreed to get up. Patient/Caregiver Goals To go home. OT Pain Assessment Pain When Pain Assessed At Rest Pain Present Pain Present Pain Reported Location Right Hip Intensity 7 Scale Used Numeric (0 - 10) M4 OT- IP ADL's Start: 11/15/23 09:49 Freq: Status: Active Protocol: Document 11/15/23 09:49 [facility] (Rec: 11/15/23 10:04 [facility] [id number]) OT UOW-Zbjl-Tvraccy General Evaluation Self-Feeding Ability Independent OT ADL-Grooming Comments OT Grooming Comments Not performed. OT ADL-Oral Care Comments Oral Care Comments Not performed. OT ADL-Dressing General Eval Lower Body Dressing Ability Minimal Assistance Areas Needing Assistance Socks Comments OT Dressing Comments Able to practice with reprographics associate to be able to leanne clothing over her feet, CGA for balance when up on her feet. Educated to leanne RLE first and take out last. OT ADL-Toileting Comments OT Toileting Comments Pt states did earlier. Suggested pt wear pad/brief at night and have her assist. OT ADL-Bathing Comments OT Bathing Comments not performed M5 OT- IP IADL's Start: 11/15/23 09:49 Freq: Status: Active Protocol: Document 11/15/23 09:49 [facility] (Rec: 11/15/23 10:04 [facility] [id number]) OT-Instrumental Activities of Daily Living Deficits IADL Deficits Identified Deficits Home Safety Awareness Awareness of Need for Assistance at Home Good Awareness Ability to Problem Solve Emergency Able to Problem Solve Situations Medication Management Medication Management No Deficits Identified Money Management Money Management No Deficits Identified Meal Preparation Meal Preparation Caregiver Provides Assist Ortho Assistant Ortho Assistant Caregiver Provides Assist M6 OT- IP Functional Cognition Start: 11/15/23 09:49 Freq: Status: Active Protocol: Document 11/15/23 09:49 [facility] (Rec: 11/15/23 10:04 [facility] [id number]) Cognitive Factors Limiting Selfcare Function Cognitive Ability Level of Alertness Alert Patient Orientation Name,Age,Birthday,Month,Date, Year,Day of Week,Place, Situation Attention Span Ability Capable of Focused Attention, Capable of Sustained Attention Ability to Follow Commands Able to Follow One Step Commands Cognitive Comments Cognitive Assessment Comments Pt able to follow commands for ADl and mobility needs with incorporation of her hip precautions. OT- Vision and Hearing OT- Hearing Assessment OT- Hearing Assessment WFL OT- Vision Assessment Visual Acuity Glasses For Reading Visual Attentiveness WFL Occular Pursuits WFL M7 OT- IP Mobility and Balance Start: 11/15/23 09:49 Freq: Status: Active Protocol: Document 11/15/23 09:49 [facility] (Rec: 11/15/23 10:04 [facility] [id number]) OT- Bed Mobility Assessment Supine to Sit Supine to Sit Assist Standby Assistance Sit to Supine Sit to Supine Assist Minimal Assistance OT-Transfer Assessment Sit to and From Stand Sit to and from Stand Contact Guard Assistance Comments Mobility Comments BP supine 63/38 and 74/39 and not symptomatic. Pt wanting to get her brief and pants on. Sitting BP 82/52 and 92/52. After getting her clothing on while standing started to fee symptomatic of being dizzy and lightheaded BP 74/46 and then had pt lie down again and nursing notified BP in supine 72/42. Pt O2 initially 88% and needing cues to deep breathing and then increased to 94% on RA. Pt needing assist to help get her RLE back into bed. OT- Gait Assessment Comments Gait Ability Comments Pt able to stand due to low BP and symptomatic after standing. OT- Balance Assessment Sitting Balance and Reactions Static Sitting Balance Ability Good Dynamic Sitting Balance Ability Good Standing Balance and Reactions Static Standing Balance Ability Fair M8 OT- IP Objective Assessments Start: 11/15/23 09:49 Freq: Status: Active Protocol: Document 11/15/23 09:49 [facility] (Rec: 11/15/23 10:04 [facility] [id number]) OT Gross Range of Motion Upper Extremity Range of Motion Assessment Within Functional Limits OT Strength Upper Extremity Strength Assessment Right Impaired Comments Strength Comments Pt has arthritis in RUE. M9 OT- IP Assessment and Plan Start: 11/15/23 09:49 Freq: Status: Active Protocol: Document 11/15/23 09:49 [facility] (Rec: 11/15/23 10:04 [facility] [id number]) OT Summary Assessment and Plan Potential Rehabilitation Potential Good Analytic Complexity at Evaluation Low Summary OT Impairments Pain,Balance,Functional Mobility,Dressing,Toileting, Bathing,Toilet Transfers, Shower Transfers,Activity Tolerance Progress Towards Goals Slow Progress due to Pain,Slow Progress due to Medical Issues Assessment Summary Pt low complexity and main barriers are pain, having low BP and very hypotensive especially when standing. Pt has supportive friend to be staying with her when able to go home. Pt to go home with assist when medically stable. Goals Grooming Goal Independent Dressing Goal Independent Toileting Goal Independent Bathing Goal Standby Assistance Toilet Transfer Goal Independent Shower Transfer Goal Standby Assistance Days to Meet Goals 5 Frequency of Treatment Frequency Of Treatment Once a Day Treatment Plan OT Treatment Plan ADL Training,Functional Mobility,Patient/Family Education,Discharge Planning Discharge Recommendations OT Discharge Recommendations Home with Assistance, Outpatient PT Home Equipment Needs Pt would benefit from a sock aid. Transportation Needs at Discharge Private Vehicle
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
[2023-11-15] MEDS: ASPIRIN EC 81 MG TABLET PO ×2 (09:39→22:07)
[2023-11-15] MEDS: LACTATED RINGERS 1,000 ML 1000 ML IV (09:39)
[2023-11-15] MEDS: DOCUSATE 100 MG CAPSULE PO ×2 (09:39→22:07)
--- NOTE | 2023-11-15 10:23 | CM.DANOTE ---
Initial DCP Assessment Visit Reviewed EMR and team rounds for pt's medical status and anticipated d/c needs. Met with pt at bedside, she was found to be laying flat in bed, appearing tired, very limited interaction. Introduced self and role, pt states that her friend will be picking her up once she's medically stable for d/c. Payor: Patricia Khan Attending: Dr. Xochilt Coreas Pt is a 68 year-old F placed in OPIB following her total R-hip arthroplastry surgery. She lives independently with her in their home in [place], and shares that she has friends that plan to assist her post-d/c with immediate recovery needs. Pt was found to be orthostatic this am, may not d/c today unless her blood pressure improves. DCP will continue to monitor and assist with any further evolving home d/c needs. Discharge Planning/Care Management CM Discharge Assessment Start: 11/15/23 10:18 Freq: Status: Active Protocol: Document 11/15/23 10:19 DPL (Rec: 11/15/23 10:23 DPL [id number]) Discharge Planning Assessment Assigned Membership Secretary KINGSTON Garcia Advance Directives? No History Provided By Patient,Medical Record Has Patient been admitted in last 30 No days? Prior Living Arrangements House Household Members spouse,family Independent with ADL's Yes Is patient alert and oriented? Yes Caregiver for Another Yes: Spouse has melanoma Community Services used prior to Physical Therapy admission: DME Already Rented / Owned Bath Bench,Elevated Toilet Seat,FWW / Walker Patient/Family Preference OP PT Therapy Barriers to Discharge No Discharge Plan Home Community Services Physical Therapy Transportation Arrangement Friend Referrals Initiated None needed Whiteboard Updated in Patient Room with Yes name and ext. # of Membership Secretary Review Status In Process Please Provide Date Initial DC 11/15/22 Assessment Was Performed Pre-Anesthesia Assessment Start: 11/02/23 12:50 Freq: Status: Active Protocol: Document 11/02/23 12:50 CAB (Rec: 11/02/23 13:36 CAB [id number]) Pre-Anesthesia Assessment Patient Information Reviewed Via Phone Assessment Assessment Completed With Patient Diagnostic Results BMP/CMP,CBC Comment Labs @ [facility] 10/20/23 Primary Care Provider Nohemi Stephens Seen Specialist in Last 12 Months Yes Specialist Seen Material Mixer,Orthopedist Primary Language Malay Pilot Supervisor Required No Height 157.48 cm Weight 68.492 kg Body Mass Index (BMI) 27.6 Hearing Ability Normal Visual Assist None Dentition Type Full- Upper & Lower Barriers to Learning None Hx Anesthesia Reactions No Hx Family Anesthesia Reaction No Hx Malignant Hyperthermia No Hx Blood Transfusions Yes: hemorrhage in '72 s/p delivery Anesthesia Review Requested Yes: Surgeon requested re: Cardiac Criminal Justice Faculty No alcohol intake current alcohol intake frequency holidays/special occasions only Smoking Status Former smoker Tobacco type e-cigarettes how long ago did patient quit smoking Quit 3 1/2 months ago, still vaping Substance Use Type does not use Pain Present Pain Reported Musculoskeletal Symptoms Difficulty Walking,Joint Pain History of Falling (Recent or History of No ) Patient is completely paralyzed or No completely immobile Mental Status Oriented to own ability Is patient on oxygen? No Does patient have BURGESS/SOB No Hx Sleep Apnea No Currently Taking a Beta Devyn No Can You Climb a Flight of Stairs Without Yes SOB Hx Chest Pain No Hx SOB No Hx Syncope or Dizziness No Anti-Coagulant Therapy Yes: 81mg ASA-advised to continue per Cardiology Has a Material Mixer Yes: Pre-op visit 07/14/[address] Burrows Cardiac Testing No Hx Pacemaker/ICD No Pacemaker Rep Required? No Cardiac Clearance Received Yes Comment Cardiac records scanned and in surgery folder for dos review Diet Type At Home Regular Dysphagia No Gastrointestinal Symptoms None Bladder Pattern Incontinent,Incontinent, Stress Urinary Catheter Present No Hx Urinary Self Catheterization No Diabetes No Patient No Lactating No Hx Drug Resistant Organism No Presence of External or Internal Medical Yes: Left hip Devices Received a COVID vaccine? Yes Received all doses? Yes Marital Status Lives With spouse,family Current Living Arrangements House Number of Floors (Floors) One Floor Support System Family,Friend(s),Spouse Comment has melanoma, minimal assist, friend and family will help at DC Does the Patient Have Assistance After Yes Surgery Patient Discharge Plan Description Return Home Comment Pt advised same day surgery per surgeon Feels Safe in Current Environment Yes Been Physically Hurt or Threatened By a No Person in Current Environment Do you have thoughts of harming yourself None or others? Are you currently considering suicide? No Do you have a plan to hurt yourself or No Plan others? Do You Have Any Spiritual Beliefs That No May Affect Your HC Choices? Do You Have Any Cultural Practices That No May Affect Your HC Choices? Comment Christianity Who Can We Speak to About Patient's Care Family, friends Identifying Code for Release of Patient Declines to issue Information Health Care Proxy/Next of Kin Guzman () Health Care Proxy Emergency Contact Name Arabella John (good friend) Emergency Contact Advance Directives? No Power of Perfume Maker No PAC Instructions Do not shave/clip surgical site,Durable medical equipment ,Medications to take/avoid, Nasal antibiotic,No ETOH/ petroleum product on skin DOS, NPO,Post-op transportation,Pre -surgical wash,Sensory aids, Sturdy shoes/comfortable clothes,Do not bring valuables and remove jewelry
[2023-11-15 12:00] VITALS: BP 74/47; PULSE 71; RESP 16; TEMP 36.3; O2SAT 92
--- NOTE | 2023-11-15 14:45 | PT.IPTN ---
Current Diagnoses Unilateral primary osteoarthritis, right hip (11/14/23) Surgery Performed Operation Date: 11/14/23 10:45 Actual Procedures p Total Hip Arthroplasty/Anterior Approach(Right) - Xochilt Coreas MD Physical Therapy Treatment Note M2 PT-IP Current Condition Start: 11/14/23 17:07 Freq: NEEDED Status: Active Protocol: Document 11/15/23 09:30 AB (Rec: 11/15/23 13:25 AB [id number]) Physical Therapy Current Condition Current Condition Evaluation Date 11/15/23 Treatment Diagnosis s/p R NOAH anterior approach; difficulty in walkiing Onset Date 11/14/23 M3 PT-IP Subjective Start: 11/14/23 17:07 Freq: NEEDED Status: Active Protocol: Document 11/15/23 14:45 AB (Rec: 11/15/23 17:18 AB [id number]) Subjective Physical Therapy Visit Type Type Treatment Note Visit Start Time 15:45 Visit Stop Time 16:30 Number of LINE SERVICE TECHNICIAN Visits 0 Physical Therapy Visit Comments Patient Comments agreeable to do PT Therapy Pain Assessment Pain When Pain Assessed At Rest Pain Present Pain Present Pain Reported Location Right Shoulder Intensity 6 Scale Used Numeric (0 - 10) Pain Management Techniques Distraction,Modification of Treatment,Re-positioning M4 PT-IP Mobility and Gait Start: 11/14/23 17:07 Freq: NEEDED Status: Active Protocol: Document 11/15/23 14:45 AB (Rec: 11/15/23 17:18 AB [id number]) PT-Bed Mobility Assessment Supine to Sit Supine to Sit Standby Assistance Sit to Supine Sit to Supine Standby Assistance PT-Transfer Assessment Sit to and From Stand Sit to and from Stand Standby Assistance,1 Person Assistance,2 Person Assistance Equipment Transfer Assistive Device Gait Belt,Front Wheeled Walker Orthotic/Prosthetic Devices or Brace: No Transfers Transfer Destination Toilet Transfer Technique ambulated Transfer Ability Level of Assist Standby Assistance,Use of Upper Extremities Comments Mobility Comments pt supine in bed and agreed to do PT. BP monitored. BP in supine: 82/44. pt completed supine to sit SBA. able to sit on EOB SBA. no c/o dizziness/ ligth headedness. BP in sittin/44. pt sat for a few more minutes and BP checked again: 85/50. pt requested to use the toilet. completed sit to stand SBA and ambulated to the toilet using FWW SBA. assisted with brief and pants management. completed sit to stand from the toilet SBA using grab bar and pt ambulated towards the sink using FWW sBA. pt was able to maintain standing using fWW/ counter for support while completing handwashing. pt ambulated to EOB using FWW SBA. BP checked: 71/45. pt wants to sit up on the chair. sit to stand from EOB SBA and completed step transfer using FWW to chair SBA. positioned pt on the chair. call light and table placed within reach. BP checked again seated: 80/44. pt asked if the pain meds is making her BP low. explained to pt that there are a lot of factors and meds may be one of them. informed pt that PT will let the nurse know so that she can explain and call the doctor for her concerns and options for pain management. informed nurse regarding continued low BP but without c /o symptoms and concerns about pain meds and that the pt want to talk to her. Gait Assessment Gait Gait Assistance Required: Standby Assistance Distance (Feet) 20 Able to Maintain Weight Bearing Status Yes During Gait Assistive Devices Assistive Device Gait Belt,Front Wheeled Walker Orthotic/Prosthetic Devices or Brace: No Gait Deviations General Gait Pattern Decreased Feet Clearance Factors Limiting Gait Function Factors Limiting Gait Function Decreased Activity Tolerance, Decreased Strength,Difficulty Following Directions,Limited Range of Motion,Pain,Poor Balance,Poor Safety Awareness M5 PT-IP Objective Assessments Start: 11/14/23 17:07 Freq: NEEDED Status: Active Protocol: Document 11/15/23 09:30 AB (Rec: 11/15/23 13:25 AB [id number]) Orientation Orientation/Cognition Level of Alertness Alert Orientation Name,Place,Situation Language Function Ability No Deficits Noted Safety Awareness Decreased Safety Awareness Memory Description No Deficits Noted Gross Range of Motion Lower Extremity ROM Assessment Within Functional Limits Strength Lower Extremity Strength Assessment Right Impaired Hip 3-/5 Knee 3+/5 Coordination Assessment Gross Coordination Gross Coordination WNL Muscle Tone Muscle Tone WNL Yes M6 PT-IP Treatment Start: 11/14/23 17:07 Freq: NEEDED Status: Active Protocol: Document 11/15/23 14:45 AB (Rec: 11/15/23 17:18 AB [id number]) Physical Therapy Treatment Education Education Provided Precautions,Safety M7 PT-IP Assessment and Plan Start: 11/14/23 17:07 Freq: NEEDED Status: Active Protocol: Document 11/15/23 14:45 AB (Rec: 11/15/23 17:18 AB [id number]) PT Summary Assessment and Plan Potential Rehabilitation Potential Fair Summary Impairments Pain,ROM,Strength,Balance,Bed Mobility,Transfers,Gait, Activity Tolerance Progress Towards Goals Slow Progress due to Medical Issues,Slow Progress due to Activity Tolerance Assessment Summary pt continues to have low BP : 82/44 in supine and lowest reading after walkin/45 but without symptoms. pt only requiring SBA with mobility using FWW and plans to go home with her friend to assist her . pt may go home when medically stable. Goals Bed Mobility Goal Independent Transfer Goal Independent,Front Wheeled Walker Gait Goal Independent,Front Wheel Walker Gait Distance 300 Days to Meet Goals 5 Frequency of Treatment Frequency Of Treatment Twice a Day Treatment Plan Physical Therapy Treatment Plan Bed Mobility Training,Transfer Training,Gait Training, Therapeutic Exercise,Balance Retraining,Post Op Education, Discharge Planning,Hot or Cold Pack,Neuromuscular Re-ed, Coordination Retraining,Manual Therapy Precautions Anterior Hip Precautions No Hip Extension,No Hip External Rotation Weight Bearing Status Weight Bearing Status Weight Bear as Tolerated Allowed Weight Bearing Amount (enter % RLE WBAT or #) (%) Recommendations To Nursing Amount of Assist Needed 1 Person Assist Discharge Recommendations PT Discharge Recommendations Home with Assistance, Outpatient PT Transportation Needs at Discharge Private Vehicle
[2023-11-15 16:00] VITALS: BP 138/101; PULSE 68; RESP 18; TEMP 36.5; O2SAT 90
--- NOTE | 2023-11-15 16:17 | PC.NURSE ---
Patient is A&Ox4, on RA. She denies dizziness while lying down although noted BP this a.m. 90'/60's. RN held antihypertensive scheduled medications this a.m. and noted that BP continued to be low and drop while sitting and standing to 70's /40's. Patient had reported feeling slightly dizzy. MD notified and per orders patient is given 1 liter LR Bolus. Patient is able to stand and use BSC and sit in the chair. She denies dizziness. She is able to participate with PT but limited as BP continues to remain low. PA at bedside evaluating patient and explains that discharge today will be held until patient BP 's improve. She is given prn 5mg oxycodone for pain 03/11 this afternoon per request but remains concerned that the medication may be causing her BP to drop. Continuous monitoring.
[2023-11-15 20:21] VITALS: BP 77/44; PULSE 76; RESP 15; TEMP 36.7; O2SAT 94
[2023-11-15] MEDS: SODIUM CHLORIDE 0.9% 1,000 ML 1000 ML IV (21:58)
[2023-11-15] MEDS: ATORVASTATIN 20 MG TABLET 40 MG PO (22:07)
[2023-11-15 22:56] VITALS: BP 93/43; PULSE 68; RESP 17; TEMP 36.8; O2SAT 94
[2023-11-16 03:30] VITALS: BP 70/37; PULSE 73
[2023-11-16 03:35] VITALS: BP 68/42; PULSE 64
[2023-11-16 03:45] VITALS: BP 88/36; PULSE 49; RESP 68
[2023-11-16 03:50] VITALS: BP 88/48
[2023-11-16] MEDS: ACETAMINOPHEN 325 MG TABLET 650 MG PO ×3 (05:05→15:24)
[2023-11-16] MEDS: IBUPROFEN 600 MG TABLET PO ×3 (05:06→15:24)
[2023-11-16 07:24] VITALS: BP 87/52; PULSE 75; RESP 17; TEMP 36.4; O2SAT 97
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
[2023-11-16 08:16] LABS: Hematocrit 33.1 % (36-46); Hemoglobin 10.9 g/dL (12.0-16.0)
[2023-11-16] MEDS: DOCUSATE 100 MG CAPSULE PO (09:44)
[2023-11-16] MEDS: ASPIRIN EC 81 MG TABLET PO (09:44)
--- NOTE | 2023-11-16 09:51 | PT.IPTN ---
Current Diagnoses Unilateral primary osteoarthritis, right hip (11/14/23) Surgery Performed Operation Date: 11/14/23 10:45 Actual Procedures p Total Hip Arthroplasty/Anterior Approach(Right) - Xochilt Coreas MD Physical Therapy Treatment Note M2 PT-IP Current Condition Start: 11/14/23 17:07 Freq: NEEDED Status: Active Protocol: Document 11/15/23 09:30 AB (Rec: 11/15/23 13:25 AB [id number]) Physical Therapy Current Condition Current Condition Evaluation Date 11/15/23 Treatment Diagnosis s/p R NOAH anterior approach; difficulty in walkiing Onset Date 11/14/23 M3 PT-IP Subjective Start: 11/14/23 17:07 Freq: NEEDED Status: Active Protocol: Document 11/16/23 10:15 TS (Rec: 11/16/23 10:24 TS [id number]) Subjective Physical Therapy Visit Type Type Treatment Note Visit Start Time 09:51 Visit Stop Time 10:14 Notes BP: 82/54 supine. Number of MOTOR POLARIZER Visits 1 Physical Therapy Visit Comments Patient Comments Pt found resting in bed, reports minimal pain in R hip, BP remains low, is agreeable to PT. Therapy Pain Assessment Pain When Pain Assessed At Rest Pain Present Pain Present Pain Reported M4 PT-IP Mobility and Gait Start: 11/14/23 17:07 Freq: NEEDED Status: Active Protocol: Document 11/16/23 10:15 TS (Rec: 11/16/23 10:24 TS [id number]) PT-Bed Mobility Assessment Supine to Sit Supine to Sit Standby Assistance Sit to Supine Sit to Supine Standby Assistance PT-Transfer Assessment Sit to and From Stand Sit to and from Stand Standby Assistance Equipment Transfer Assistive Device Gait Belt,Front Wheeled Walker Orthotic/Prosthetic Devices or Brace: No Comments Mobility Comments Supine to sit SBA with HOB elevated and BUE support. STS from bed SBA with FWW, pt has good standing balance and posture. She ambulated in ~80' SBA with FWW and step to gait. Pt back in bed, was instructed in the intensity and frequency of post-op ex and to ambulate ~once per hour at home. pt was left in bed, all needs met. Gait Assessment Gait Gait Assistance Required: Standby Assistance Distance (Feet) 80 Able to Maintain Weight Bearing Status Yes During Gait Assistive Devices Assistive Device Gait Belt,Front Wheeled Walker Orthotic/Prosthetic Devices or Brace: No Gait Deviations General Gait Pattern Antalgic,Decreased Stride Length,Decreased Feet Clearance,Step-to Gait Factors Limiting Gait Function Factors Limiting Gait Function Decreased Activity Tolerance, Decreased Strength,Difficulty Following Directions,Limited Range of Motion,Pain,Poor Balance Comments Gait Comments See mobility comments. PT-Balance Assessment Sitting Balance and Reactions Static Sitting Balance Ability Good Dynamic Sitting Balance Ability Good Standing Balance and Reactions Static Standing Balance Ability Good Dynamic Standing Balance Ability Fair Device Used FWW M5 PT-IP Objective Assessments Start: 11/14/23 17:07 Freq: NEEDED Status: Active Protocol: Document 11/15/23 09:30 AB (Rec: 11/15/23 13:25 AB [id number]) Orientation Orientation/Cognition Level of Alertness Alert Orientation Name,Place,Situation Language Function Ability No Deficits Noted Safety Awareness Decreased Safety Awareness Memory Description No Deficits Noted Gross Range of Motion Lower Extremity ROM Assessment Within Functional Limits Strength Lower Extremity Strength Assessment Right Impaired Hip 3-/5 Knee 3+/5 Coordination Assessment Gross Coordination Gross Coordination WNL Muscle Tone Muscle Tone WNL Yes M6 PT-IP Treatment Start: 11/14/23 17:07 Freq: NEEDED Status: Active Protocol: Document 11/16/23 10:15 TS (Rec: 11/16/23 10:24 TS [id number]) Physical Therapy Treatment Education Education Provided Precautions,Safety M7 PT-IP Assessment and Plan Start: 11/14/23 17:07 Freq: NEEDED Status: Active Protocol: Document 11/16/23 10:15 TS (Rec: 11/16/23 10:24 TS [id number]) PT Summary Assessment and Plan Potential Rehabilitation Potential Good Summary Impairments Pain,ROM,Strength,Balance,Bed Mobility,Transfers,Gait, Activity Tolerance Progress Towards Goals Progressing Toward Goals Assessment Summary Marie is making progress with her mobility this session. She is SBA for all bed mobility and STS with FWW. She progressed her gait to ~80'SBA with FWW. Her BP remains low( 82/54), she denies any symptoms with mobility. PT is recommending home with assist and outpatient PT. Goals Bed Mobility Goal Independent Transfer Goal Independent,Front Wheeled Walker Gait Goal Independent,Front Wheel Walker Gait Distance 300 Days to Meet Goals 5 Frequency of Treatment Frequency Of Treatment Twice a Day Treatment Plan Physical Therapy Treatment Plan Bed Mobility Training,Transfer Training,Gait Training, Therapeutic Exercise,Balance Retraining,Post Op Education, Discharge Planning,Hot or Cold Pack,Neuromuscular Re-ed, Coordination Retraining,Manual Therapy Precautions Anterior Hip Precautions No Hip Extension,No Hip External Rotation Weight Bearing Status Weight Bearing Status Weight Bear as Tolerated Allowed Weight Bearing Amount (enter % RLE WBAT or #) (%) Recommendations To Nursing Amount of Assist Needed 1 Person Assist Discharge Recommendations PT Discharge Recommendations Home with Assistance, Outpatient PT Transportation Needs at Discharge Private Vehicle
[2023-11-16 10:33] VITALS: BP 90/54; PULSE 60; RESP 16; TEMP 36.3; O2SAT 93
[2023-11-16] MEDS: SODIUM CHLORIDE 0.9% 500 ML 1000 ML IV (11:00)
--- NOTE | 2023-11-16 15:58 | PC.NURSE ---
Patient is A&OX4 this a.m. BP 90's/50's asymptomatic, but noted poor po intake. She denies n/v or dizziness. Patient is able to participate with PT and ambulate without feeling dizzy however SBP remains <100. PA notified and per orders RN administered 500 cc NS bolus. Patient is voiding adequately and SBP 107-117 three hours after IVF bolus. She is cleared for discharge this afternoon. She verbalizes understanding of site care, activity limitations, medications as well as follow up appointment postoperatively. She is escorted by RN to private vehicle with close friend with her FWW and all of her personal belongings at 1545 this afternoon.
== END 2023-11-16 15:40 | disposition home or self-care (01) ==
LOC: OR 08:22 → AC 08:22
PROVIDERS: PCP Physician Assistant; Referring Provider Orthopaedic Surgery; Visit Provider Orthopaedic Surgery
PROC: (CPT 27130; principal; 2023-11-14 10:45)
DX: M16.11 Unilateral primary osteoarthritis, right hip (principal); M25.751 Osteophyte, right hip
CPT/HCPCS: 27130; 36415; 73502; 76000; 85014; 85018; 97116; 97162; 97165; 97530; 97535; C1776; C9290; J0171; J0690; J1170; J2250; J2405; J2704; J3010; J3410

== ENCOUNTER → 2024-02-15 14:46 | Outpatient (CLI) | payer OTHER, MEDICAID, SELFPAY ==
[2023-11-14 16:51] VITALS: BMI 27.6
--- NOTE | 2024-02-15 14:49 | DI.MG.S_ITS ---
BILATERAL DIGITAL SCREENING MAMMOGRAM 3D/2D WITH CAD: 02/15/2024 CLINICAL: Routine screening. Comparison is made to exams dated: 08/20/2021 mammogram, 06/04/2020 mammogram, and 03/21/2019 mammogram - [facility]. Both breasts are almost entirely fatty (category a/<25% glandular tissue). Current study was also evaluated with a Computer Aided Detection (CAD) system. There is a benign calcification in the right breast. No significant masses, calcifications, or other findings are seen in either breast. There has been no significant interval change. IMPRESSION: BENIGN There is no mammographic evidence of malignancy. A 1 year screening mammogram is recommended. Based on the Tyrer Cuzick model (a risk assessment model) the patient's lifetime risk is 1.7% and her 10 year risk is 1.0%. According to the ACR, ACS, and NCCN guidelines, an annual breast MRI exam along with mammogram is recommended if the patient's lifetime risk is 20% or greater. This exam was interpreted at Station ID: [id number]. NOTE: For mammograms, a report in lay terms will be sent to the patient. Approximately 15% of breast malignancies will not be visualized mammographically. In the management of a palpable breast mass, a negative mammogram must not discourage biopsy of a clinically suspicious lesion. Electronically Signed By: Jazz jensen/matilde:02/15/2024 19:13:16 letter sent: Normal Exam ACR BI-RADS Category 2: Benign Finding(s) 3342F
== END ==
PROVIDERS: PCP Physician Assistant; Referring Provider Physician Assistant; Visit Provider Physician Assistant
DX: Z12.31 Encounter for screening mammogram for malignant neoplasm of breast (principal); R92.313 Mammographic fatty tissue density, bilateral breasts
CPT/HCPCS: 77063; 77067

== ENCOUNTER 2024-05-02 09:53 | Day surgery (SDC) | payer MEDICARE, MEDICAID, SELFPAY ==
[2023-11-14 16:51] VITALS: BMI 27.6
--- NOTE | 2024-05-02 | PATH_ITS ---
[facility] Accession Number: [id number] No. of containers..01 Tissue . 01 Material submitted: . colon - SIGMOID MASS AT 20 CM . 01 Diagnosis: COLON, SIGMOID MASS AT 20 CM, BIOPSIES: Invasive adenocarcinoma moderately differentiated. MMR immunohistochemical stains panel is pending. See comment. TXN 05/07/2024 1053 Local . 01 Comment: Histologic examination of sigmoid mass biopsies shows fragmented colonic mucosa with invasive adenocarcinoma, moderately differentiated within the submucosa with stromal reaction, additionally there is small focus of low-grade dysplasia in colonic mucosa. Mismatch repair proteins (MMR) immunohistochemical stains panel is performed and will be reported in addendum. Morris Ruff reviewed the case and concurs with the above diagnosis. The above findings were reported to registered nurse Robert Rojo over the phone in 05/07/2024 at 10.45 AM PST. . 01 Electronically signed: . Shannan Macdonald MD, Pathologist NPI- [id number] . 01 Gross description: . Received in formalin with two patient identifiers and sigmoid mass, are multiple mcwilliams soft tissue fragments aggregating to 1.2 x 1.0 x 0.3 cm. Filtered and submitted in A1. ([id number]) /MRV 05/03/2024 1443 Local . 01 Pathologist provided ICD-10: C18.9 . 01 CPT . 373883 Specimen Comment: A courtesy copy of this report has been sent to [phone] Performed at: [address] [address], [place], [place] [id number] MD Agustin Robbins MD Phone: [phone]
[2024-05-02 10:13] VITALS: BP 102/86; PULSE 89; RESP 16; TEMP 36.6; O2SAT 98
--- NOTE | 2024-05-02 10:37 | PM.PREOP ---
Pre-operative Note COVID-19 COVID-19 status: Not tested Interval Note History & Physical reviewed/Exam performed by Physician: Yes Changes to H&P: No ASA Class (for procedural sedation): III
--- NOTE | 2024-05-02 11:06 | PM.OP.COLON ---
Operative Date/Time/Diagnoses Date of procedure: 05/02/24 Time of procedure: 11:06 Pre-op diagnosis: Rectal bleeding Post-op diagnosis: same Procedure & Clinicians Study performed: Colonoscopy Same procedure as scheduled: Yes Surgeon: Jas Sue Procedure Notes Procedure in detail: Surgeon: Jas Sue MD Anesthesia: Jeimy Ramsey CRNA Procedure: The patient was brought to the endoscopy suite, placed in left lateral decubitus position. The patient was connected to monitoring devices. A time-out was performed. Sedation was administered. Once the patient was adequately sedated, a digital rectal exam was performed and was normal. The scope was then inserted and advanced to the lower sigmoid colon where a near obstructing mass was noted at approximately 19 cm. The scope could not be safely advanced beyond the mass. Multiple biopsies were taken with the Jumbo forceps. Tattoo ink was injected just distal to the mass. The scope was then slowly withdrawn and the remainder of the sigmoid colon and rectum were visualized and no further abnormalities noted. The scope was retroflexed in the rectum. Internal hemorrhoids were noted. The scope was straightened and removed. The patient was awakened and brought to recovery. Scope withdrawal time: Not applicable Sedation time: 13 minutes EBL: 5 mL Findings: Near obstructing sigmoid colon mass at 19 cm Post-procedure Disposition: PACU
[2024-05-02 11:08] VITALS: BP 123/74; PULSE 81; RESP 20; TEMP 36.3; O2SAT 97
[2024-05-02] MEDS: LACTATED RINGERS 1,000 ML 42 ML IV (11:12)
[2024-05-02 11:13] VITALS: BP 111/76; PULSE 73; RESP 12; O2SAT 97
[2024-05-02 11:18] VITALS: BP 93/67; PULSE 87; RESP 16; TEMP 36.3; O2SAT 95
[2024-05-02 11:26] VITALS: BP 96/66; PULSE 74; RESP 14; O2SAT 96
[2024-05-02 12:40] LABS: Add Manual Diff / Slide Review NO; Basophils Absolute Auto 0 /uL (0-100); Basophils Percent Auto 0.3 % (0-2); Eosinophils Absolute Auto 400 /uL (0-450); Hematocrit 43.6 % (36-46); Hemoglobin 14.3 g/dL (12.0-16.0); Lymphocytes Absolute Auto 2000 /uL (1100-4500); Lymphocytes Percent Auto 28.3 % (25-40); Mean Corpuscular HGB Conc 32.9 % (30-36); Mean Corpuscular Volume 88.2 fL (80-100); Monocytes Absolute Auto 400 /uL (0-900); Monocytes Percent Auto 5.6 % (3-14); Neutrophils Absolute Auto 4300 /uL (1500-7000); Neutrophils Percent Auto 60.8 % (50-75); Platelet Count 232 X10^3/uL (150-400); Red Blood Cell Count 4.94 X10^6/uL (4.0-5.2); Red Cell Distribution Width 15.4 % (11.6-14.8); White Blood Cell Count 7.1 X10^3/uL (4.5-11.0)
[2024-05-02 12:58] LABS: Alanine Aminotransferase 16 IU/L (<35); Albumin 4.4 g/dL (3.5-5.0); Albumin Globulin Ratio 1.5 (1.0-2.8); Alkaline Phosphatase 93 U/L (38-126); Aspartate Aminotransferase 33 IU/L (14-36); BUN Creatinine Ratio 26.2 (6-22); Bilirubin Total 0.9 mg/dL (0.2-1.3); Blood Urea Nitrogen 27 mg/dL (7-17); Calcium 9.9 mg/dL (8.4-10.2); Carbon Dioxide 25 mmol/L (22-32); Chloride 106 mmol/L (98-107); Estimated Glomerular Filt Rate 58 mL/min (>60); Glucose 82 mg/dL (80-110); HEMOLYSIS < 15 (0-50); Sodium 141 mmol/L (137-145); Total Protein 7.4 g/dL (6.3-8.2)
[2024-05-02 13:24] LABS: Carcinoembryonic Antigen 6.8 ng/mL (0.1-3.0)
== END 2024-05-02 11:40 | disposition home or self-care (01) ==
PROVIDERS: PCP Physician Assistant; Referring Provider Surgery; Visit Provider Surgery
PROC: 0DJD8ZZ Inspection of Lower Intestinal Tract, Via Natural or Artificial Opening Endoscopic (ICD-10-PCS; CPT 45378; principal; 2024-05-02 11:00)
DX: C18.9 Malignant neoplasm of colon, unspecified (principal); Z80.0 Family history of malignant neoplasm of digestive organs; K64.8 Other hemorrhoids
CPT/HCPCS: 45381; 45380; 80053; 82378; 85025; J2704

== ENCOUNTER → 2024-05-09 08:35 | Outpatient (CLI) | payer MEDICARE, MEDICAID, SELFPAY ==
[2023-11-14 16:51] VITALS: BMI 27.6
--- NOTE | 2024-05-09 10:18 | DI.CT.S_ITS ---
PROCEDURE: CT ABDOMEN PELVIS W CON INDICATIONS: sigmoid colon mass TECHNIQUE: After the administration of intravenous contrast, axial sections acquired from the lung bases to the pubic symphysis. Coronal and sagittal reformats were performed. For radiation dose reduction, the following was used: automated exposure control, adjustment of mA and/or kV according to patient size. COMPARISON: None. FINDINGS: Image quality: Diagnostic. Lower Chest: No visible nodule, pleural, or pericardial effusion. ABDOMEN: Liver: No solid mass. Gallbladder: No wall thickening or calcified stones. Biliary ducts: No biliary dilation. Pancreas: Normal size and morphology without visible ductal dilatation or inflammation. Spleen: Size is within normal limits. Adrenal Glands: No adrenal nodules. Kidneys and Ureters: Symmetric enhancement showing bilateral, multifocal areas cortical thinning. No hydronephrosis or solid mass. Stomach and Bowel: Short segment enhancing, circumferential wall thickening in the proximal sigmoid/distal descending colon measuring roughly 3.9 cm in length. Slight irregularity and spiculation along the serosal surface throughout the segment, but no visible extramural nodularity. No resulting colonic obstruction at this point. The colon is otherwise filled stool and has normal wall thickness. Occasional descending colon diverticulosis. The appendix is not seen. Normal small bowel without obstruction. Normal stomach contour. Peritoneum: No abnormal intraperitoneal fluid. No free air. Ventral Wall: No significant ventral hernia. Abdominal Nodes: There are several tiny round left lower quadrant mesenteric lymph nodes, suspicious for shape rather than size. No retroperitoneal or mesenteric adenopathy by size criteria. Vessels: The abdominal aorta, IVC, and portal vein are of normal caliber. Moderate abdominal aortic atherosclerotic calcification. PELVIS: Pelvic Organs: Partially obscured due bilateral hip arthroplasty artifact. The uterus is present. Ovaries are not seen. Bladder: Decompressed and not well seen. Pelvic Nodes: No enlarged lymph nodes. Miscellaneous: No inguinal hernias are seen. Bones: Bilateral hip arthroplasties. Degenerative sclerotic changes at the pubic symphysis and hypertrophic degenerative changes in the lower lumbar spine. IMPRESSION: 3.9 cm length segment of suspicious proximal sigmoid colon, likely corresponding to neoplasm on colonoscopy. No definite transmural extension. Tiny mesenteric lymph nodes immediately adjacent to the mass are equivocal. No evidence of metastatic disease elsewhere in the abdomen or pelvis. Dictated by: Jazz Martin M.D. on 05/09/2024 at 17:49 Approved by: Jazz Martin M.D. on 05/09/2024 at 18:04
== END ==
PROVIDERS: PCP Physician Assistant; Referring Provider Surgery; Visit Provider Surgery
DX: K62.5 Hemorrhage of anus and rectum (principal); K63.9 Disease of intestine, unspecified; K57.30 Diverticulosis of large intestine without perforation or abscess without bleeding; I70.0 Atherosclerosis of aorta; Z96.643 Presence of artificial hip joint, bilateral
CPT/HCPCS: 74177; Q9967

== ENCOUNTER 2024-05-14 12:50 | Inpatient (IN) | payer MEDICARE, MEDICAID, SELFPAY ==
[2023-11-14 16:51] VITALS: BMI 27.6
[2024-05-09 13:06] VITALS: BMI 27.6
[2024-05-14] VITALS (10 sets, daily range): BP systolic 104–150; BP diastolic 58–102; PULSE 58–75; RESP 12–20; TEMP 35.7–36.8; O2SAT 95–100; BMI 27.1
--- NOTE | 2024-05-14 | PATH_ITS ---
[facility] Accession Number: [id number] No. of containers..02 Tissue . 01 Material submitted: . PART A: colon - SIGMOID COLON PART B: colon - DISTAL RINGS . 01 Diagnosis: A. COLON, SIGMOID, SEGMENTAL RESECTION: Invasive adenocarcinoma, moderately differentiated, with the following features: . CASE SUMMARY: Procedure: Sigmoidectomy. . TUMOR Tumor site: Sigmoid colon. Histologic type: Adenocarcinoma. Histologic grade: G2, moderately differentiated. Tumor size Greatest dimension: 4.5 cm. Additional dimensions: 2.7 x 0.9 cm. Tumor extent: Invades through muscularis propria into the pericolonic tissue. Lymphatic and/or vascular invasion: Not identified. Perineural invasion: Not identified. . MARGINS All margins negative for invasive carcinoma. Closest margin to invasive carcinoma: Stapled margin (the specimen is otherwise unoriented). Distance from invasive carcinoma to closest margin: 2.2 cm. . REGIONAL LYMPH NODES All regional lymph nodes negative for tumor. Number of lymph nodes examined: 16. Tumor deposits: Not identified. . pTNM CLASSIFICATION (AJCC 8TH EDITION) pT3: Tumor invades through the muscularis propria into pericolonic tissues. pN0: No regional lymph node metastasis. . . B. COLON, DISTAL RINGS, RESECTION: Additional segments of colon with no diagnostic alterations. [facility] 05/22/2024 1134 Local . 01 Comment: Preliminary findings were discussed with Dr. Sue by Dr. Robbins on 05/20/2024. Sections of the mass have also been reviewed by Dr. Wilbur Kapadia, who concurs. . 01 Electronically signed: . Agustin Robbins MD, Pathologist NPI- [id number] . 01 Gross description: . A. Received in formalin with two patient identifiers and sigmoid colon, is an unoriented portion of colon, 11.1 cm in length by 1.7 cm in diameter. One end is stapled which is inked blue, and the opposite is patent and is inked black while the mesenteric margin is inked green. The serosa is mcwilliams and smooth with a caballero-black area consistent with tattooing (1.7 x 1.5 cm) located 2.2 cm from the nearest blue-inked margin. The lumen contains a small amount of mucoid material. A large sessile mass (4.5 x 2.7 cm) is located centrally adjacent to the tattoo inked area and the nearest margin is the blue margin at 4.0 cm. The mass appears to extend into and possibly through the muscularis propria, and is present adjacent to the pericolonic fat. The remaining mucosa is mcwilliams and velvety with normal-appearing folds and no additional lesions identified. The lee average 0.3 cm thick with no diverticula identified. . Palpation reveals 15 mcwilliams lymph node candidates, 0.3 to 0.6 cm in greatest dimension. . Pantry Chef sections are submitted as follows: A1: Blue margin en face. A2: Black margin en face. A3: Mass deepest extension. A4: Mass in deepest extension and normal. A5: Normal full thickness sections. A6: Three intact lymph node candidates. A7: Four intact lymph node candidates. A8: Five intact lymph node candidates. A9: Three intact lymph node candidates. A10-A12: Additional sections of the mass. ([id number]) B. Received in formalin with two patient identifiers and distal rings, are two circular fragments of colon, the first (2.0 x 1.9 x 0.7 cm) has mcwilliams velvety mucosa and an annular purple suture, and is inked blue. The second fragment (2.6 x 1.3 x 0.9 cm) has a staple line and mcwilliams velvety mucosa, and is inked green. Sectioning reveals unremarkable bowel wall that averages 0.4 cm thick with no lesions identified. Pantry Chef sections are submitted in B1. ([id number]) /MRV 05/22/2024 1134 Local . 01 Pathologist provided ICD-10: C18.7 . 01 CPT . 354635, [id number] Specimen Comment: A courtesy copy of this report has been sent to [phone] Performed at: [address] [facility], [place], [place] [id number] MD Agustin Robbins MD Phone: [phone]
[2024-05-14] MEDS: ACETAMINOPHEN 325 MG TABLET 975 MG PO (13:35)
[2024-05-14] MEDS: LACTATED RINGERS 1,000 ML 42 ML IV ×2 (13:42→15:32)
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
[2024-05-14] MEDS: AMPICILLIN/SULBACTAM 3 GM 3 GM in SODIUM CHLORIDE 0.9% 100 ML IV (14:31)
--- NOTE | 2024-05-14 14:56 | SUR.OPER ---
Lithotomy on padded OR bed. Hazelton Pad Positioner under torso. Head on pillow, arms padded and tucked at sides. Legs secured in padded yellow fins stirrups.
[2024-05-14] MEDS: BUPIVACAINE LIPOSOME 266 MG/20 ML VIAL INJ (15:17)
[2024-05-14] MEDS: BUPIVACAINE 0.5% (PF) 30 ML, EPINEPHrine 0.15 MG INJ (15:18)
--- NOTE | 2024-05-14 17:46 | P.OP_ITS ---
Operative Date/Time/Diagnoses Date of procedure: 05/14/24 Time of procedure: 17:46 Pre-op diagnosis: Sigmoid colon cancer Post-op diagnosis: same Procedure & Clinicians Procedure: Laparoscopic-assisted low anterior resection Same procedure as scheduled: No Surgeon: Jas Sue Forestry Foreman: Rizwan Henning Anesthesia Type: General Operative Notes Procedure in detail: The patient was given Unasyn. The patient was brought to the operating room, placed on the table in the supine position and general endotracheal anesthesia was induced. Chand catheter was inserted and the legs were placed in stirrups. The abdomen was prepped and draped in the usual fashion and a time-out was performed. We made a 1 cm infraumbilical incision and a Ahuja port was placed. The abdomen was insufflated in the usual manner. The camera was inserted no ev idence of an injury was seen. Next we placed 5 mm ports in the right lower quadrant, right upper quadrant and left abdomen. We inspected the abdomen and found the thickened sigmoid colon. We then started to reflect the sigmoid colon along the white line of Toldt. The ureter was visualized and protected. We then continued the dissection up the left sidewall along the white line of Toldt. There were adhesions between distal transverse colon in the descending colon that were taken down. We continued the dissection down into the pelvis. We isolated the inferior mesenteric artery and divided it between hemolock clips. The remainder of the mesentery was taken down with the power seal from about the proximal sigmoid colon to the proximal rectum. We then upsized the right lower quadrant port to a 12 mm port and introduced Endo-MINDY linear stapler and divided the rectum at the peritoneal reflection. We then desufflated the abdomen and extended the infraumbilical incision to about 6 cm. A small Germain wound retractor was placed into the wound. The sigmoid colon and proximal rectum were exteriorized. We divided the colon at the junction of the descending colon and proximal sigmoid and inserted the anvil of the 29 EEA stapler. We performed a pursestring closure around the anvil with 3-0 Prolene. We then closed the infraumbilical incision with running 0 PDS suture. We then r einsufflated the abdomen and reintroduced the camera. We then created a colorectal anastomosis using the 29 mm EEA stapler. The donuts were intact and the leak test was negative for leak. The patient was awakened and brought to recovery room. Rizwan CACERES provided assistance with exposure, retraction and closure of incisions. EBL: 50 mL Specimen: sigmoid colon and proximal rectum Post-operative Condition: stable Disposition: PACU
[2024-05-14] MEDS: OXYCODONE IR 5 MG TABLET PO (18:24)
[2024-05-14] MEDS: ONDANSETRON 4 MG/2 ML INJ IV (18:24)
[2024-05-14] MEDS: LACTATED RINGERS 1,000 ML 100 ML IV ×2 (18:57→21:06)
[2024-05-14] MEDS: HYDROMORPHONE 0.5 MG INJ IV (18:57)
[2024-05-14] MEDS: HYDROCODONE/ACET 5/325 TABLET 2 TAB PO (22:26)
[2024-05-15 01:17] VITALS: BP 104/48; PULSE 85; RESP 20; O2SAT 95
[2024-05-15] MEDS: HYDROMORPHONE 0.5 MG INJ IV ×2 (04:10→11:26)
[2024-05-15 04:54] LABS: Add Manual Diff / Slide Review NO; Basophils Absolute Auto 0 /uL (0-100); Basophils Percent Auto 0.4 % (0-2); Eosinophils Absolute Auto 100 /uL (0-450); Eosinophils Percent Auto 1.4 % (2-4); Hematocrit 36.4 % (36-46); Hemoglobin 12.5 g/dL (12.0-16.0); Lymphocytes Absolute Auto 2100 /uL (1100-4500); Lymphocytes Percent Auto 20.2 % (25-40); Mean Corpuscular HGB Conc 34.3 % (30-36); Mean Corpuscular Hemoglobin 29.7 PG (26-34); Mean Corpuscular Volume 86.4 fL (80-100); Monocytes Absolute Auto 600 /uL (0-900); Monocytes Percent Auto 5.7 % (3-14); Neutrophils Absolute Auto 7400 /uL (1500-7000); Neutrophils Percent Auto 72.3 % (50-75); Platelet Count 227 X10^3/uL (150-400); Red Blood Cell Count 4.21 X10^6/uL (4.0-5.2); Red Cell Distribution Width 15.1 % (11.6-14.8); White Blood Cell Count 10.2 X10^3/uL (4.5-11.0)
[2024-05-15 05:18] LABS: BUN Creatinine Ratio 17.4 (6-22); Blood Urea Nitrogen 16 mg/dL (7-17); Calcium 8.7 mg/dL (8.4-10.2); Carbon Dioxide 25 mmol/L (22-32); Chloride 107 mmol/L (98-107); Estimated Glomerular Filt Rate > 60 mL/min (>60); Glucose 77 mg/dL (80-110); HEMOLYSIS < 15 (0-50); Potassium 3.6 mmol/L (3.4-5.1); Sodium 136 mmol/L (137-145)
[2024-05-15] MEDS: LACTATED RINGERS 1,000 ML 100 ML IV ×3 (05:28→23:22)
[2024-05-15 08:00] VITALS: BP 100/55; PULSE 75; RESP 16; TEMP 36.3; O2SAT 96
[2024-05-15] MEDS: IBUPROFEN 600 MG TABLET PO ×2 (08:34→20:06)
[2024-05-15] MEDS: HYDROCODONE/ACET 5/325 TABLET 1 TAB PO (08:34)
[2024-05-15 09:06] VITALS: BP 100/55; PULSE 77
[2024-05-15 09:23] VITALS: O2SAT 94
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
[2024-05-15 12:00] VITALS: BP 97/54; PULSE 70; RESP 16; TEMP 36.6; O2SAT 96
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
[2024-05-15] MEDS: HYDROCODONE/ACET 5/325 TABLET 2 TAB PO ×2 (15:42→20:06)
--- NOTE | 2024-05-15 15:46 | CM.DANOTE ---
Initial DCP Assessment Note Pt is a 69 yo female, resident of [place], s/p lap assisted colectomy after recent dx of sigmoid colon cancer. PCP: Nohemi Stephens Payer: Patricia PALOMO/DOMINICK Reviewed chart, met w/patient to introduce self and role. Patient lives independently at home, had been living with spouse up until his cancer dx and fall (?) with subsequent broken neck. Patient reports [facility] team is looking for long wall mining machine helper care placement for her because she cannot safely care for him at home. Patient has family members in town and plans to discharge home with their assist throughout her recovery. No barriers identified at this time to patient's safe discharge home w/family to assist; close outpatient f/u recommended. CM team will plan to follow clinical course closely in case any DC needs or concerns arise. KINGSTON Chapman Discharge Planning/Care Management CM Discharge Assessment Start: 05/15/24 15:39 Freq: Status: Active Protocol: Document 05/15/24 15:39 JESUSITA (Rec: 05/15/24 15:46 JESUSITA [id number]) Discharge Planning Assessment Assigned Payroll Services Analyst KINGSTON Diaz DPOA/Assigned Designee Name Arabella John (good friend) Contact Information Tyrel Cedeño, son P [phone] Segundo Cedeño, son P [phone] Advance Directives? No History Provided By Patient,Medical Record Prior Living Arrangements House Comment in hospital with cancer, broke his neck and cannot safely return home, long wall mining machine helper care placement pending for spouse Guzman. Son, brother and [id number] will assist after surgery. Household Members family Type of transporation used prior to Relies on Others admit Independent with ADL's Yes Is patient alert and oriented? Yes Barriers to Discharge No Comment Home w/family Discharge Plan Home Transportation Arrangement Friend Referrals Initiated None needed
[2024-05-15 20:00] VITALS: BP 93/64; PULSE 63; RESP 17; TEMP 36.3; O2SAT 93
[2024-05-15] MEDS: ATORVASTATIN 20 MG TABLET 10 MG PO (20:07)
--- NOTE | 2024-05-15 23:44 | PC.NURSE ---
Dr. Mendoza notified with low B/P 80/50 & HR. in the 50's 54-59. Pt. denies any symptoms; fatigue, dizziness, weakness, nausea, blurry vision & other S&S of hypotension. Patient reported every time I have a surgery, my blood pressure is always low. It happened the day after my surgery. IVF LR infusing @ 100 cc/hr. Will continue plan of care & monitor.
[2024-05-16] VITALS (9 sets, daily range): BP systolic 87–120; BP diastolic 47–74; PULSE 56–69; RESP 12–18; TEMP 35.9–36.2; O2SAT 90–96
[2024-05-16 05:04] LABS: Add Manual Diff / Slide Review NO; Basophils Absolute Auto 0 /uL (0-100); Basophils Percent Auto 0.5 % (0-2); Eosinophils Absolute Auto 600 /uL (0-450); Eosinophils Percent Auto 7.4 % (2-4); Hematocrit 34.9 % (36-46); Hemoglobin 11.7 g/dL (12.0-16.0); Lymphocytes Absolute Auto 1900 /uL (1100-4500); Lymphocytes Percent Auto 23.3 % (25-40); Mean Corpuscular HGB Conc 33.5 % (30-36); Mean Corpuscular Hemoglobin 29.3 PG (26-34); Mean Corpuscular Volume 87.5 fL (80-100); Monocytes Absolute Auto 600 /uL (0-900); Neutrophils Absolute Auto 4900 /uL (1500-7000); Neutrophils Percent Auto 61.8 % (50-75); Platelet Count 209 X10^3/uL (150-400); Red Blood Cell Count 3.99 X10^6/uL (4.0-5.2); Red Cell Distribution Width 15.3 % (11.6-14.8)
[2024-05-16 05:13] LABS: BUN Creatinine Ratio 11.5 (6-22); Blood Urea Nitrogen 11 mg/dL (7-17); Calcium 8.7 mg/dL (8.4-10.2); Carbon Dioxide 28 mmol/L (22-32); Chloride 107 mmol/L (98-107); Estimated Glomerular Filt Rate > 60 mL/min (>60); Glucose 81 mg/dL (80-110); HEMOLYSIS < 15 (0-50); Potassium 3.6 mmol/L (3.4-5.1); Sodium 137 mmol/L (137-145)
[2024-05-16] MEDS: ENOXAPARIN 40 MG/0.4 ML SYRINGE SUBCUT (08:42)
[2024-05-16] MEDS: HYDROMORPHONE 0.5 MG INJ IV ×6 (08:43→21:26)
[2024-05-16] MEDS: IBUPROFEN 600 MG TABLET PO ×2 (08:43→14:45)
[2024-05-16] MEDS: LACTATED RINGERS 1,000 ML 100 ML IV ×2 (10:23→21:41)
[2024-05-16] MEDS: HYDROCODONE/ACET 5/325 TABLET 2 TAB PO ×3 (10:28→18:17)
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
[2024-05-16] MEDS: ONDANSETRON 4 MG/2 ML INJ IV (12:56)
--- NOTE | 2024-05-16 15:38 | PT-IP ANOTE ---
Pt just got done ambulating with nursing staff and is about to have a shower. PT will check on pt tomorrow.
[2024-05-16] MEDS: HYDROCODONE/ACET 5/325 TABLET 1 TAB PO (18:52)
[2024-05-16] MEDS: ATORVASTATIN 20 MG TABLET 10 MG PO (21:27)
[2024-05-17] MEDS: HYDROCODONE/ACET 5/325 TABLET 2 TAB PO (06:00)
[2024-05-17 06:11] VITALS: BP 117/61; PULSE 65; RESP 17; TEMP 36.2; O2SAT 91
[2024-05-17 08:00] VITALS: BP 107/64; PULSE 66; RESP 16; TEMP 36.1; O2SAT 99
[2024-05-17] MEDS: lisinopriL 10 MG TABLET PO (08:57)
[2024-05-17] MEDS: hydroCHLOROthiazide 25 MG TABLET 12.5 MG PO (08:57)
[2024-05-17] MEDS: ENOXAPARIN 40 MG/0.4 ML SYRINGE SUBCUT (09:00)
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
--- NOTE | 2024-05-17 10:25 | PC.NURSE ---
Assess- Patient is alert and oriented x4, she denies pain or discomfort. She has 5 small incisions from her resection surgery. Patient is up with sba to the bathroom and she is eating some at meals. Patient will most likely be discharged home today.
== END 2024-05-17 13:47 | disposition home or self-care (01) | DRG 331 ==
PROVIDERS: Admitting Provider Surgery; PCP Physician Assistant; Referring Provider Surgery; Visit Provider Surgery
PROC: 0DTE0ZZ Resection of Large Intestine, Open Approach (ICD-10-PCS; principal; 2024-05-14 14:15)
DX: C18.7 Malignant neoplasm of sigmoid colon (principal); I10 Essential (primary) hypertension; F17.290 Nicotine dependence, other tobacco product, uncomplicated
CPT/HCPCS: 36415; 44207; 80048; 85025; 97116; 97162; 97530; C9290; J0171; J0295; J0330; J0360; J1100; J1170; J1650; J1885; J2250; J2405; J2704; J3010; J3490

== ENCOUNTER → 2024-07-25 14:23 | Outpatient (CLI) | payer MEDICARE, MEDICAID, SELFPAY ==
[2024-05-14 13:00] VITALS: BMI 27.1
--- NOTE | 2024-07-25 14:24 | DI.CT.S_ITS ---
PROCEDURE: CT CHEST ABD PEL W CON INDICATIONS: Colon cancer in May 2024 TECHNIQUE: After the administration of intravenous contrast, 5 mm thick sections acquired from the lung apices to the symphysis. 5 mm coronal and sagittal reformats were performed, with additional 7 mm MIP reformats through the lungs. For radiation dose reduction, the following was used: automated exposure control, adjustment of mA and/or kV according to patient size. COMPARISON: [facility], CT, CT ABDOMEN PELVIS W CON, 05/09/2024, 10:08. FINDINGS: Image quality: Excellent. CHEST: Lower Neck: No enlarged lymph nodes. Thyroid: No thyroid nodules which require sonographic follow up, per consensus guidelines. Axillae: No enlarged lymph nodes. Chest Wall: Unremarkable. Lungs and Pleura: No pneumothorax or pleural effusions. No consolidation or suspicious nodules. Moderate to severe emphysematous change. Heart: Heart size is normal. No pericardial effusion. Thoracic Vessels: The aorta and pulmonary arteries demonstrate normal size. Mediastinum and [place]: No enlarged lymph nodes. Esophagus: No wall thickening. No hiatal hernia. ABDOMEN: Liver: No solid mass. Gallbladder: No radiopaque gallstones or wall thickening. Biliary ducts: No biliary dilation. Pancreas: No ductal dilation. Spleen: Size is within normal limits. Adrenal Glands: No adrenal nodules. Kidneys and Ureters: No hydronephrosis. No solid mass. No complex renal cystic lesion which requires follow up. Areas of cortical thinning. Stomach and Bowel: Stomach is within normal limits. No small bowel obstruction. Diverticulosis. Rectosigmoid anastomosis. The appendix is not dilated. Peritoneum: No abnormal intraperitoneal fluid. No free air. Ventral Wall: No significant ventral hernia. Ventral abdominal wall scar. Abdominal Nodes: No retroperitoneal or mesenteric adenopathy by size criteria. Vessels: Aorta and inferior vena cava are normal in size. Calcified atherosclerotic plaque. PELVIS: Pelvic Organs: Anteverted uterus. Bladder: No bladder wall thickening, accounting for underdistention. Pelvic Nodes: No enlarged lymph nodes. Miscellaneous: No inguinal hernias are seen. Bones: No aggressive osseous abnormality. Bilateral hip arthroplasties. Beam hardening artifact. Mild sclerosis at the pubic symphysis. Sclerosis superior to the right acetabulum. IMPRESSION: No metastatic disease demonstrated. Dictated by: Ho Brito M.D. on 07/25/2024 at 16:16 Approved by: Ho Brito M.D. on 07/25/2024 at 16:40
[2024-07-25 14:57] LABS: Estimated Glomerular Filt Rate 56 mL/min (>60)
== END ==
LOC: CT 14:23
PROVIDERS: Radiology Diagnostic Radiology; PCP Physician Assistant; Referring Provider Internal Medicine; Visit Provider Internal Medicine
DX: C18.7 Malignant neoplasm of sigmoid colon (principal)
CPT/HCPCS: 36415; 71260; 74177; 82565; Q9967

== ENCOUNTER → 2024-09-23 13:54 | Outpatient (CLI) | payer MEDICARE, MEDICAID, SELFPAY ==
[2024-05-14 13:00] VITALS: BMI 27.1
[2024-09-23 14:36] LABS: Add Manual Diff / Slide Review NO; Basophils Absolute Auto 0 /uL (0-100); Basophils Percent Auto 0.4 % (0-2); Eosinophils Absolute Auto 200 /uL (0-450); Eosinophils Percent Auto 1.6 % (2-4); Hematocrit 44.4 % (36-46); Hemoglobin 14.6 g/dL (12.0-16.0); Lymphocytes Absolute Auto 2400 /uL (1100-4500); Lymphocytes Percent Auto 21.4 % (25-40); Mean Corpuscular HGB Conc 32.9 % (30-36); Mean Corpuscular Hemoglobin 29.3 PG (26-34); Mean Corpuscular Volume 88.9 fL (80-100); Monocytes Absolute Auto 800 /uL (0-900); Monocytes Percent Auto 7.1 % (3-14); Neutrophils Absolute Auto 7900 /uL (1500-7000); Neutrophils Percent Auto 69.5 % (50-75); Platelet Count 223 X10^3/uL (150-400); Red Blood Cell Count 4.99 X10^6/uL (4.0-5.2); Red Cell Distribution Width 14.8 % (11.6-14.8); White Blood Cell Count 11.3 X10^3/uL (4.5-11.0)
[2024-09-23 14:54] LABS: Alanine Aminotransferase 26 IU/L (<35); Albumin 4.5 g/dL (3.5-5.0); Albumin Globulin Ratio 1.6 (1.0-2.8); Alkaline Phosphatase 83 U/L (38-126); Aspartate Aminotransferase 30 IU/L (14-36); BUN Creatinine Ratio 26.9 (6-22); Bilirubin Total 0.5 mg/dL (0.2-1.3); Blood Urea Nitrogen 28 mg/dL (7-17); Calcium 9.8 mg/dL (8.4-10.2); Carbon Dioxide 29 mmol/L (22-32); Chloride 104 mmol/L (98-107); Estimated Glomerular Filt Rate 58 mL/min (>60); Globulin 2.8 g/dL (1.7-4.1); Glucose 92 mg/dL (80-110); HEMOLYSIS < 15 (0-50); Potassium 3.9 mmol/L (3.4-5.1); Sodium 140 mmol/L (137-145); Total Protein 7.3 g/dL (6.3-8.2)
== END ==
PROVIDERS: PCP Physician Assistant; Referring Provider Surgery; Visit Provider Surgery
DX: C18.9 Malignant neoplasm of colon, unspecified (principal)
CPT/HCPCS: 80053; 82378; 85025

== ENCOUNTER 2024-10-03 07:46 | Day surgery (SDC) | payer MEDICARE, MEDICAID, SELFPAY ==
[2024-05-14 13:00] VITALS: BMI 27.1
--- NOTE | 2024-10-03 | PATH_ITS ---
[facility] Accession Number: [id number] No. of containers..01 Tissue . 01 Material submitted: . colon - DESCENDING POLYP . 01 Diagnosis: DESCENDING POLYP: Tubular adenoma. STO 10/07/2024 1431 Local . 01 Electronically signed: . Agustin Robbins MD, Pathologist NPI- [id number] . 01 Gross description: . Received in formalin with two patient identifiers and descending colon polyp, are two mcwilliams soft tissue fragments, 0.5-1.9 cm in greatest dimension, submitted in A1. ([id number]) /MRV 10/07/2024 143 Local . 01 Pathologist provided ICD-10: D12.4 . 01 CPT . 201388 Specimen Comment: A courtesy copy of this report has been sent to [phone] Performed at: [address] [facility] [id number] MD Agustin Robbins MD Phone: [phone]
[2024-10-03] MEDS: SODIUM CHLORIDE 0.9% 1,000 ML 150 ML IV (08:16)
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
--- NOTE | 2024-10-03 09:18 | PM.OP.COLON ---
Operative Date/Time/Diagnoses Date of procedure: 10/03/24 Time of procedure: 09:18 Pre-op diagnosis: History of colon cancer Post-op diagnosis: same Procedure & Clinicians Study performed: Colonoscopy Same procedure as scheduled: Yes Surgeon: Jas Sue Procedure Notes Procedure in detail: Surgeon: Jas Sue MD Anesthesia: Lana Vazquez CRNA Procedure: The patient was brought to the endoscopy suite, placed in left lateral decubitus position. The patient was connected to monitoring devices. A time-out was performed. Sedation was administered. Once the patient was adequately sedated, a digital rectal exam was performed and was normal. The scope was then inserted and advanced to the cecum where the appendiceal orifice was identified and photographed. The scope was then slowly withdrawn over greater than 6 minutes. The mucosa was thoroughly inspected. There was a 5 mm polyp in the descending colon removed with a cold snare. The anastomosis was visualized and there was no evidence of recurrence. The scope was retroflexed in the rectum. No other abnormalities were found. The scope was straightened and removed. The patient was awakened and brought to recovery. Scope withdrawal time: 10 minutes Sedation time: 13 minutes EBL: 5 mL Findings: 5 mm descending colon polyp Post-procedure Disposition: PACU
[2024-10-03 09:20] VITALS: BP 111/70; PULSE 60; RESP 16; TEMP 36.2; O2SAT 98
[2024-10-03 09:24] VITALS: BP 117/76; PULSE 59; RESP 16; TEMP 36.2; O2SAT 95
[2024-10-03 09:29] VITALS: BP 110/80; PULSE 65; RESP 16; TEMP 36.2; O2SAT 98
[2024-10-03 09:34] VITALS: BP 111/77; PULSE 58; RESP 16; TEMP 36.2; O2SAT 100
== END 2024-10-03 09:46 | disposition home or self-care (01) ==
PROVIDERS: PCP Physician Assistant; Referring Provider Surgery; Visit Provider Surgery
PROC: 0DJD8ZZ Inspection of Lower Intestinal Tract, Via Natural or Artificial Opening Endoscopic (ICD-10-PCS; CPT 45378; principal; 2024-10-03 09:00)
DX: Z12.11 Encounter for screening for malignant neoplasm of colon (principal); Z85.038 Personal history of other malignant neoplasm of large intestine; D12.4 Benign neoplasm of descending colon
CPT/HCPCS: 45385; J2704

== ENCOUNTER → 2024-12-13 07:04 | Outpatient (CLI) | payer OTHER, MEDICAID, SELFPAY ==
[2024-05-14 13:00] VITALS: BMI 27.1
--- NOTE | 2024-12-13 07:06 | DI.US.S_ITS ---
PROCEDURE: US ARTERIAL DUPLEX LE BI INDICATIONS: CLAUDICATION TECHNIQUE: Color and pulse Doppler interrogation was performed of both lower extremity arterial systems, with image documentation. COMPARISON: None. FINDINGS: Right lower extremity: Common femoral artery: 134 cm/sec, with triphasic flow. Deep femoral artery: 160 cm/sec, with triphasic flow. Proximal superficial femoral artery: 168 cm/sec, with triphasic flow. Mid superficial femoral artery: 86 cm/sec, with triphasic flow. Distal superficial femoral artery: 62 cm/sec, with triphasic flow. Popliteal artery: 75 cm/sec, with triphasic flow. Posterior tibial artery: 58 cm/sec, with triphasic flow. Anterior tibial artery/dorsalis pedis: 70 cm/sec, with triphasic flow. Mcfadden-scale imaging description: Moderate atherosclerotic disease, mostly of the femoral vessels. Left lower extremity: Common femoral artery: 89 cm/sec, with triphasic flow. Deep femoral artery: 137 cm/sec, with triphasic flow. Proximal superficial femoral artery: 149 cm/sec, with triphasic flow. Mid superficial femoral artery: 63 cm/sec, with triphasic flow. Distal superficial femoral artery: 62 cm/sec, with triphasic flow. Popliteal artery: 83 cm/sec, with triphasic flow. Posterior tibial artery: 70 cm/sec, with triphasic flow. Anterior tibial artery/dorsalis pedis: 52 cm/sec, with triphasic flow. Mcfadden-scale imaging description: Moderate atherosclerotic disease of the common femoral artery. IMPRESSION: Patent lower extremity vasculature without hemodynamically significant stenosis. Dictated by: Gilberto Obrien M.D. on 12/13/2024 at 15:33 Approved by: Gilberto Obrien M.D. on 12/13/2024 at 15:39
== END ==
PROVIDERS: PCP Physician Assistant; Referring Provider Physician Assistant; Visit Provider Physician Assistant
DX: I73.9 Peripheral vascular disease, unspecified (principal)
CPT/HCPCS: 93925

== ENCOUNTER → 2025-07-10 14:19 | Outpatient (CLI) | payer MEDICARE, MEDICAID, SELFPAY ==
[2024-05-14 13:00] VITALS: BMI 27.1
--- NOTE | 2025-07-10 14:27 | DI.MG.S_ITS ---
MM screening mammo BI: 07/10/2025. BI-RADS: 1 CLINICAL: 70-year old female for bilateral screening mammogram. Tyrer-Cuzick lifetime risk of 0.8%. No personal or first-degree family history of breast cancer. PRIOR EXAMS 02/15/2024, 08/20/2021, 06/04/2020, 03/21/2019, MAMMOGRAPHY TECHNIQUE: 2D and 3D (tomosynthesis) digital mammographic views obtained, with additional images as needed for full coverage. Current study was also evaluated with a Computer Aided Detection (CAD) system. DENSITY A. The breasts are almost entirely fatty. MAMMOGRAPHY FINDINGS Bilateral: No suspicious mass, asymmetry, microcalcification, or other abnormality seen. IMPRESSION: * No evidence of malignancy. RECOMMENDATIONS Bilateral * Annual screening mammography. OVERALL ASSESSMENT CATEGORY BI-RADS-1: Negative. The [employer] recommends annual screening mammography beginning at age 40 for women with average risk of breast cancer. ELECTRONICALLY SIGNED: Aris Blair M.D. on 07/11/2025 at 07:22:21 AM PT Interpreting Station ID: [id number]
== END ==
PROVIDERS: PCP Family Medicine; Referring Provider Family Medicine; Visit Provider Family Medicine
DX: Z12.31 Encounter for screening mammogram for malignant neoplasm of breast (principal); R92.313 Mammographic fatty tissue density, bilateral breasts
CPT/HCPCS: 77063; 77067